=== PATIENT | female | born 1945 | race Caucasian/White ===

== ENCOUNTER 2017-09-29 16:02 | Inpatient (IN) ==
[2017-09-29] MEDS: *HR* OxyCODONE/APAP 10/325 TABLET PO PRN (19:49)
[2017-09-29] MEDS: Ondansetron 4 MG/2 ML VIAL IVP PRN (19:49)
[2017-09-29] MEDS: 0.9 % Sodium Chloride 1,000 ML IVC SCH (20:01)
[2017-09-29] MEDS: Aspirin 81 MG TAB.CHEW PO SCH (20:01)
[2017-09-30] MEDS: Piperacillin/Tazobactam 3.375 GM in 0.9 % Sodium Chloride Mini Bag 100 ML IVPB SCH ×3 (01:31→16:10)
[2017-09-30] MEDS: *HR* OxyCODONE/APAP 10/325 TABLET PO PRN ×4 (02:09→23:58)
[2017-09-30 06:52] LABS: Basophils % 0.5 %; Eosinophils # 0.3 K/mcL (0.0-0.6); Eosinophils % 3.8 %; Hematocrit 37.7 % (35.3-44.9); Hemoglobin 11.8 g/dL (11.5-15.4); Immature Granulocytes % 0.1 % (0-4); Lymphocytes # 1.8 K/mcL (0.6-4.6); Lymphocytes % 22.4 %; Mean Corpuscular HGB Conc 31.3 g/dL (31.6-35.5); Mean Corpuscular Hemoglobin 27.3 pg (28.0-33.3); Mean Corpuscular Volume 87.1 fL (83.0-100.0); Mean Platelet Volume 9.8 fL (9.4-12.4); Monocytes # 0.6 K/mcL (0.0-1.3); Monocytes % 7.8 %; Neutrophils # 5.1 K/mcL (1.6-8.9); Platelet Count 230 K/mcL (140-400); Red Blood Count 4.33 M/mcL (3.82-4.97); Red Cell Distribution Width 13.7 % (11.5-14.5); Segmented Neutrophils % 65.4 %
[2017-09-30 07:06] LABS: BUN/Creatinine Ratio 22 (6-26); Blood Urea Nitrogen 16 mg/dL (8-23); Calcium 8.7 mg/dL (8.6-10.3); Carbon Dioxide 30 mEq/L (23-29); Chloride 107 mEq/L (98-107); Glucose 90 mg/dL (70-105); Osmolality,Calculated 295 (280-300); Sodium 142 mEq/L (136-145); eGFR For African Americans > 60 (> 60); eGFR For Non-African Americans > 60 (> 60)
[2017-09-30] MEDS: Aspirin 81 MG TAB.CHEW PO SCH (08:47)
[2017-09-30] MEDS: 0.9 % Sodium Chloride 1,000 ML IVC SCH ×2 (08:48→21:12)
--- NOTE | 2017-09-30 08:48 | General Surg History&Physical ---
Date of Encounter: 09/30/17 Time of Encounter: 08:40 Assessment and Plan (1) Diverticulitis of colon with perforation Current Visit: No Status: Acute The assessment and plan as outlined above was discussed with the patient and/or family members who expressed understanding and agreement. All questions were answered. The patient has acute sigmoid diverticulitis. There is no associated fluid collection interpreted as an abscess. Since excellent quite small. She does have a significant length of the sigmoid colon involved with acute diverticulitis. Continue antibiotic therapy. Should respond to antibiotic therapy. Qualifiers: Diverticulitis bleeding: without bleeding Qualified Code(s): K57.20 - Diverticulitis of large intestine with perforation and abscess without bleeding History of Present Illness Chief complaint: Abdominal pain HPI: Ms. Pradhan is a 72 year old female presented to the [facility] emergency room with a 4-5 day history of abdominal pain. The pain is in the left lower quadrant and in the suprapubic area. She has not previously had abdominal pain of this type. She states that first day of abdominal pain she had disorientation really does not remember her first day of pain. She was in bed all day. She does have shakes chills. She states that she had a fever last night. She denies rectal bleeding. She denies changes in bowel movement. Evaluation in the emergency room demonstrated CAT scan evidence of acute diverticulitis. She now presents for evaluation and treatment of acute diverticulitis Past Med Surg Social Fam HX - Past Medical History Medical history: arthritis, COPD, other Psychiatric history: no psych history - Past Surgical History Surgical History: appendectomy, hysterectomy, other (Bladder sling surgery) - Social History Smoking Status: Former smoker Smokeless Tobacco Status: No Alcohol use: none Drug use: none Medications and Allergies Aspirin [Adult Aspirin Regimen] 81 mg PO DAILY 09/29/17 [History] Oxygen 1 each .ROUTE AD 09/29/17 [History] Sertraline [Zoloft] 25 mg PO DAILY 09/29/17 [History] 3 Allergy/AdvReac Type Severity Reaction Status Date / Time No Known Allergies Allergy Verified 09/29/17 12:07 Review of Systems All systems PM: The remainder of the systems were reviewed and are negative - Respiratory dyspnea on exertion, wheezing General Surgery Exam Initial Vital Signs Temp Pulse Resp BP Pulse Ox 98.8 F 81 18 139/92 97 09/29/17 17:30 09/29/17 17:30 09/29/17 17:30 09/29/17 17:30 09/29/17 17:30 - General physical appearance well developed, well nourished, severe pain, obese - Neck no masses, no bruits, trachea midline, no lymphadectomy, no venous distension - Respiratory normal expansion, normal respiratory effort, clear to percussion, clear to auscultation - Cardiovascular Cardiovascular exam: Present: RRR, no murmurs/rubs/gallops - Abdomen Abdomen general surgery: Present: bowel sounds present, soft, tender Abdominal Tenderness: Present: LLQ, suprapubic (Involuntary guarding) - Neurologic Present: CN 2-12 grossly intact, normal coordination, normal sensation - Psychiatric Psychiatric general surgery: Present: appropriate, oriented to person, oriented to place, oriented to time, speech is normal, memory intact Results - Labs 09/30/17 06:02 09/30/17 06:02 Abnormal lab results MCH 27.3 pg (28.0-33.3) L 09/30/17 06:02 MCHC 31.3 g/dL (31.6-35.5) L 09/30/17 06:02 Carbon Dioxide 30 mEq/L (23-29) H 09/30/17 06:02 Diabetes panel 09/30/17 Range/Units 06:02 Sodium 142 (136-145) mEq/L Potassium 4.0 (3.5-5.1) mEq/L Chloride 107 (98-107) mEq/L Carbon Dioxide 30 H (23-29) mEq/L BUN 16 (8-23) mg/dL Creatinine 0.72 (0.60-1.20) mg/dL Glucose 90 (70-105) mg/dL Calcium 8.7 (8.6-10.3) mg/dL Calcium panel 09/30/17 Range/Units 06:02 Calcium 8.7 (8.6-10.3) mg/dL Pituitary panel 09/30/17 Range/Units 06:02 Sodium 142 (136-145) mEq/L Potassium 4.0 (3.5-5.1) mEq/L Chloride 107 (98-107) mEq/L Carbon Dioxide 30 H (23-29) mEq/L BUN 16 (8-23) mg/dL Creatinine 0.72 (0.60-1.20) mg/dL Glucose 90 (70-105) mg/dL Calcium 8.7 (8.6-10.3) mg/dL Adrenal panel 09/30/17 Range/Units 06:02 Sodium 142 (136-145) mEq/L Potassium 4.0 (3.5-5.1) mEq/L Chloride 107 (98-107) mEq/L Carbon Dioxide 30 H (23-29) mEq/L BUN 16 (8-23) mg/dL Creatinine 0.72 (0.60-1.20) mg/dL Glucose 90 (70-105) mg/dL Calcium 8.7 (8.6-10.3) mg/dL All other labs normal. - Imaging CT scan - abdomen: image reviewed (I personally reviewed the CAT scan of the abdomen. She has findings consistent with diverticulitis. The reported abscess is quite small and should resolve with antibiotic therapy.) - VTE Reasons for not Prescribing Prophylaxis: Treatment not Indicated - Low risk for VTE
[2017-10-01] MEDS: Ondansetron 4 MG/2 ML VIAL IVP PRN ×2 (04:45→20:37)
[2017-10-01] MEDS: *HR* OxyCODONE/APAP 10/325 TABLET PO PRN ×3 (05:59→20:37)
[2017-10-01] MEDS: Piperacillin/Tazobactam 3.375 GM in 0.9 % Sodium Chloride Mini Bag 100 ML IVPB SCH ×2 (07:50)
[2017-10-01] MEDS: Aspirin 81 MG TAB.CHEW PO SCH (07:50)
--- NOTE | 2017-10-01 08:35 | General Surgery Progress Note ---
<Grant Nazario - Last Filed: 10/01/17 10:53> Date of Encounter: 10/01/17 Time of Encounter: 08:30 - Assessment and Plan (1) Diverticulitis of colon with perforation Current Visit: No Status: Acute Acute sigmoid diverticulitis without fluid collection suggestive of an abscess per CT review. Continuing Zosyn q8h. Will progress to clear liquids. No involuntary guarding today compared to yesterday. The assessment and plan as outlined above was discussed with the patient and/or family members who expressed understanding and agreement. All questions were answered. Qualifiers: Diverticulitis bleeding: without bleeding Qualified Code(s): K57.20 - Diverticulitis of large intestine with perforation and abscess without bleeding Subjective Patient reports: voiding w/o difficulty, afebrile Narrative: Ms. Pradhan states she has mild loose stools but is otherwise without complaint. Objective Vital Signs - Last 8 Hours Temp Pulse Resp BP Pulse Ox 10/01/17 07:54 95 10/01/17 06:47 98.3 F 96 20 96/60 95 10/01/17 02:55 98.4 F 70 18 100/62 97 Intake and Output 09/30/17 10/01/17 10/01/17 23:59 07:59 15:59 Intake Total 1100 / 1100 100 / 100 Output Total 300 / 300 0 / 0 Balance 800 / 800 100 / 100 Intake: IV Fluids 1100 / 1100 100 / 100 0.9 % Sodium Chloride 1,000 ML 1000 / 1000 @ 75 mls/hr IVC .[id number] [facility] Rx #:[id number] Zosyn 3.375 GM In 0.9 % Sodium 100 / 100 100 / 100 Chloride (Mini-Bag +) 100 ML @ 25 mls/hr IVPB Q8H [facility] Rx#: [id number] Oral 0 / 0 0 / 0 Output: Urine 300 / 300 0 / 0 Other: Meal npo Stool Size Small Stool Consistency loose soft Stool Color Brown # Voids 1 # Bowel Movements 1 # Bowel Movement Diapers 1 Weight 103 kg Blood Glucose* 78 77 Patient Weight 10/01/17 23:59 Weight 103 kg - General physical appearance well developed, well nourished, no distress - Eyes normal ocular movement - ENT normal pinna, normal nares, normal mucosa - Neck Neck exam: no masses - Respiratory normal expansion, normal respiratory effort, clear to auscultation - Cardiovascular Cardiovascular exam: Present: RRR, NR - Abdomen Abdomen: Present: soft, non tender. Absent: guarding - Neurologic normal sensation - Psychiatric oriented to time, oriented to person, speech is normal, memory intact - Labs 09/30/17 06:02 09/30/17 06:02 - VTE Reasons for not Prescribing Prophylaxis: Treatment not Indicated - Low risk for VTE Consult Discharge Plan - Plan Referrals: Mary Jo Dawkins, [employer] [Primary Care Provider] - <Collin Alexander - Last Filed: 10/01/17 14:01> Date of Encounter: 10/01/17 - Assessment and Plan (1) Diverticulitis of colon with perforation Current Visit: No Status: Acute Qualifiers: Diverticulitis bleeding: without bleeding Qualified Code(s): K57.20 - Diverticulitis of large intestine with perforation and abscess without bleeding Objective Vital Signs - Last 8 Hours Temp Pulse Resp BP Pulse Ox 10/01/17 11:15 98.0 F 68 16 103/64 98 10/01/17 07:54 95 10/01/17 06:47 98.3 F 96 20 96/60 95 Intake and Output 09/30/17 10/01/17 10/01/17 23:59 07:59 15:59 Intake Total 1100 / 1100 100 / 100 1100 / 1100 Output Total 300 / 300 0 / 0 Balance 800 / 800 100 / 100 1100 / 1100 Intake: IV Fluids 1100 / 1100 100 / 100 1100 / 1100 0.9 % Sodium Chloride 1,000 ML 1000 / 1000 1000 / 1000 @ 75 mls/hr IVC .[id number] [facility] Rx #:[id number] Zosyn 3.375 GM In 0.9 % Sodium 100 / 100 100 / 100 100 / 100 Chloride (Mini-Bag +) 100 ML @ 25 mls/hr IVPB Q8H [facility] Rx#: [id number] Oral 0 / 0 0 / 0 0 / 0 Output: Urine 300 / 300 0 / 0 Other: Meal npo NPO Stool Size Small Stool Consistency loose soft Stool Color Brown # Voids 1 1 # Bowel Movements 1 # Bowel Movement Diapers 1 Weight 103 kg Blood Glucose* 78 77 Patient Weight 10/01/17 23:59 Weight 103 kg - Labs 09/30/17 06:02 09/30/17 06:02 - Attending Attestation I examined this patient and my medical decision-making was reviewed with the Resident Physician. I agree with the documented findings, disposition and treatment plan as described except to the extent set forth below. The patient is seen and evaluated on morning rounds with the resident. Her abdominal examination is much improved and she no longer has involuntary guarding. I will start her on clear liquid diet. We will continue IV antibiotics at this point.
[2017-10-01] MEDS: 0.9 % Sodium Chloride 1,000 ML IVC SCH (10:36)
[2017-10-01] MEDS: MetroNIDAZOLE 500 MG/100 ML 500 MG/100 ML BAG IVPB SCH ×2 (12:22→20:37)
[2017-10-02] MEDS: *HR* OxyCODONE/APAP 10/325 TABLET PO PRN ×3 (04:20→21:20)
[2017-10-02] MEDS: Ondansetron 4 MG/2 ML VIAL IVP PRN (04:20)
[2017-10-02] MEDS: MetroNIDAZOLE 500 MG/100 ML 500 MG/100 ML BAG IVPB SCH ×3 (04:21→20:10)
[2017-10-02] MEDS: 0.9 % Sodium Chloride 1,000 ML IVC SCH (04:21)
[2017-10-02 04:54] LABS: Basophils % 0.3 %; Eosinophils # 0.2 K/mcL (0.0-0.6); Eosinophils % 2.3 %; Hematocrit 36.4 % (35.3-44.9); Hemoglobin 11.6 g/dL (11.5-15.4); Immature Granulocytes % 0.2 % (0-4); Lymphocytes # 1.6 K/mcL (0.6-4.6); Lymphocytes % 18.7 %; Mean Corpuscular HGB Conc 31.9 g/dL (31.6-35.5); Mean Corpuscular Hemoglobin 27.8 pg (28.0-33.3); Mean Corpuscular Volume 87.1 fL (83.0-100.0); Mean Platelet Volume 9.9 fL (9.4-12.4); Monocytes # 0.6 K/mcL (0.0-1.3); Monocytes % 6.8 %; Neutrophils # 6.2 K/mcL (1.6-8.9); Platelet Count 235 K/mcL (140-400); Red Blood Count 4.18 M/mcL (3.82-4.97); Red Cell Distribution Width 13.4 % (11.5-14.5); Segmented Neutrophils % 71.7 %
[2017-10-02 04:55] LABS: BUN/Creatinine Ratio 15 (6-26); Blood Urea Nitrogen 8 mg/dL (8-23); Calcium 8.5 mg/dL (8.6-10.3); Carbon Dioxide 28 mEq/L (23-29); Chloride 107 mEq/L (98-107); Glucose 106 mg/dL (70-105); Osmolality,Calculated 287 (280-300); Potassium 3.7 mEq/L (3.5-5.1); Sodium 139 mEq/L (136-145); eGFR For African Americans > 60 (> 60); eGFR For Non-African Americans > 60 (> 60)
[2017-10-02] MEDS: Aspirin 81 MG TAB.CHEW PO SCH (08:21)
--- NOTE | 2017-10-02 09:30 | General Surgery Progress Note ---
<Grant Nazario - Last Filed: 10/02/17 11:38> Date of Encounter: 10/02/17 Time of Encounter: 08:25 - Assessment and Plan (1) Diverticulitis of colon with perforation Current Visit: No Status: Acute Patient complains of persisting lower abdominal pain and nausea. Will order repeat CT abd/pelvis with iv and oral to assess for draining abscess. NPO and d/c fluids until after repeat CT. No involuntary guarding x2 days compared to 09/30. The assessment and plan as outlined above was discussed with the patient and/or family members who expressed understanding and agreement. All questions were answered. Qualifiers: Diverticulitis bleeding: without bleeding Qualified Code(s): K57.20 - Diverticulitis of large intestine with perforation and abscess without bleeding Subjective Narrative: Ms. Pradhan was seen and evaluated at bedside. She has been on a clear liquid diet, and has had a BM, she describes some nausea and persisting abdominal pain. No fevers. Objective Vital Signs - Last 8 Hours Temp Pulse Resp BP Pulse Ox 10/02/17 08:24 97 10/02/17 06:27 98.2 F 67 18 103/62 97 10/02/17 04:34 98.0 F 73 16 135/68 95 Intake and Output 10/01/17 10/02/17 10/02/17 23:59 07:59 15:59 Intake Total 940 / 940 1440 / 1440 0 / 0 Output Total 200 / 200 700 / 700 Balance 740 / 740 740 / 740 0 / 0 Intake: IV Fluids 100 / 100 1200 / 1200 0.9 % Sodium Chloride 1,000 ML 1000 / 1000 @ 75 mls/hr IVC .[id number] [facility] Rx #:[id number] Cipro Premix 400 MG/200 ML 400 200 / 200 mg In 200 ml @ 200 mls/hr IVPB Q12H [facility] Rx#:[id number] Flagyl Premix 500 MG/100 ML 500 100 / 100 mg In 100 ml @ 100 mls/hr IVPB Q8H [facility] Rx#:[id number] Oral 840 / 840 240 / 240 0 / 0 Output: Urine 200 / 200 700 / 700 Other: Meal Dinner NPO Percent of Meal Consumed 0% # Bowel Movement Diapers 1 Weight 103.51 kg Patient Weight 10/02/17 23:59 Weight 103.51 kg - General physical appearance well developed, well nourished, no distress - Eyes normal ocular movement - ENT normal mucosa - Neck Neck exam: no lymphadectomy - Respiratory clear to auscultation - Cardiovascular Cardiovascular exam: Present: RRR, regular rhythm. Absent: murmurs, JVD - Abdomen Abdomen: Present: soft, non tender - Psychiatric oriented to time, oriented to person, oriented to place, speech is normal, memory intact - Labs 10/02/17 04:18 10/02/17 04:18 Diabetes panel 10/02/17 Range/Units 04:18 Sodium 139 (136-145) mEq/L Potassium 3.7 (3.5-5.1) mEq/L Chloride 107 (98-107) mEq/L Carbon Dioxide 28 (23-29) mEq/L BUN 8 (8-23) mg/dL Creatinine 0.52 L (0.60-1.20) mg/dL Glucose 106 H (70-105) mg/dL Calcium 8.5 L (8.6-10.3) mg/dL Calcium panel 10/02/17 Range/Units 04:18 Calcium 8.5 L (8.6-10.3) mg/dL Pituitary panel 10/02/17 Range/Units 04:18 Sodium 139 (136-145) mEq/L Potassium 3.7 (3.5-5.1) mEq/L Chloride 107 (98-107) mEq/L Carbon Dioxide 28 (23-29) mEq/L BUN 8 (8-23) mg/dL Creatinine 0.52 L (0.60-1.20) mg/dL Glucose 106 H (70-105) mg/dL Calcium 8.5 L (8.6-10.3) mg/dL Adrenal panel 10/02/17 Range/Units 04:18 Sodium 139 (136-145) mEq/L Potassium 3.7 (3.5-5.1) mEq/L Chloride 107 (98-107) mEq/L Carbon Dioxide 28 (23-29) mEq/L BUN 8 (8-23) mg/dL Creatinine 0.52 L (0.60-1.20) mg/dL Glucose 106 H (70-105) mg/dL Calcium 8.5 L (8.6-10.3) mg/dL - VTE Reasons for not Prescribing Prophylaxis: Treatment not Indicated - Low risk for VTE Consult Discharge Plan - Plan Referrals: Mary Jo Dawkins, [employer]INTENANCE TECHNICIAN [Primary Care Provider] - <Collin Alexander - Last Filed: 10/02/17 17:09> Date of Encounter: 10/02/17 - Assessment and Plan (1) Diverticulitis of colon with perforation Current Visit: No Status: Acute Qualifiers: Diverticulitis bleeding: without bleeding Qualified Code(s): K57.20 - Diverticulitis of large intestine with perforation and abscess without bleeding Objective Vital Signs - Last 8 Hours Temp Pulse Resp BP Pulse Ox 10/02/17 16:01 98.1 F 66 18 116/78 96 10/02/17 15:23 98.1 F 66 16 116/78 96 10/02/17 10:53 97.6 F 65 14 133/63 98 Intake and Output 10/02/17 10/02/17 10/02/17 07:59 15:59 23:59 Intake Total 1540 / 1540 800 / 800 Output Total 700 / 700 300 / 300 Balance 840 / 840 500 / 500 Intake: IV Fluids 1300 / 1300 800 / 800 0.9 % Sodium Chloride 1,000 ML 1000 / 1000 500 / 500 @ 75 mls/hr IVC .[id number] [facility] Rx #:[id number] Cipro Premix 400 MG/200 ML 400 200 / 200 200 / 200 mg In 200 ml @ 200 mls/hr IVPB Q12H [facility] Rx#:[id number] Flagyl Premix 500 MG/100 ML 500 100 / 100 100 / 100 mg In 100 ml @ 100 mls/hr IVPB Q8H [facility] Rx#:[id number] Oral 240 / 240 0 / 0 Output: Urine 700 / 700 300 / 300 Other: Meal NPO Percent of Meal Consumed 0% Stool Size Large Stool Consistency loose Stool Color Brown Weight 103.51 kg Blood Glucose* 210 Patient Weight 10/02/17 23:59 Weight 103.51 kg - Labs 10/02/17 04:18 10/02/17 04:18 Diabetes panel 10/02/17 Range/Units 04:18 Sodium 139 (136-145) mEq/L Potassium 3.7 (3.5-5.1) mEq/L Chloride 107 (98-107) mEq/L Carbon Dioxide 28 (23-29) mEq/L BUN 8 (8-23) mg/dL Creatinine 0.52 L (0.60-1.20) mg/dL Glucose 106 H (70-105) mg/dL Calcium 8.5 L (8.6-10.3) mg/dL Calcium panel 10/02/17 Range/Units 04:18 Calcium 8.5 L (8.6-10.3) mg/dL Pituitary panel 10/02/17 Range/Units 04:18 Sodium 139 (136-145) mEq/L Potassium 3.7 (3.5-5.1) mEq/L Chloride 107 (98-107) mEq/L Carbon Dioxide 28 (23-29) mEq/L BUN 8 (8-23) mg/dL Creatinine 0.52 L (0.60-1.20) mg/dL Glucose 106 H (70-105) mg/dL Calcium 8.5 L (8.6-10.3) mg/dL Adrenal panel 10/02/17 Range/Units 04:18 Sodium 139 (136-145) mEq/L Potassium 3.7 (3.5-5.1) mEq/L Chloride 107 (98-107) mEq/L Carbon Dioxide 28 (23-29) mEq/L BUN 8 (8-23) mg/dL Creatinine 0.52 L (0.60-1.20) mg/dL Glucose 106 H (70-105) mg/dL Calcium 8.5 L (8.6-10.3) mg/dL - Attending Attestation I examined this patient and my medical decision-making was reviewed with the Resident Physician. I agree with the documented findings, disposition and treatment plan as described except to the extent set forth below. The patient is seen and evaluated on morning rounds with resident. She continues to complain of pain. Her white blood cell count is normal. She had evidence of very indiscrete abscess on CAT scan. I would like to rule out formation of a discrete abscess. We will order a CAT scan today. Continue IV antibiotic therapy proceed with CT drain of the abscess if present Collin Alexander MD FACS
[2017-10-03] MEDS: 0.9 % Sodium Chloride 1,000 ML IVC SCH ×3 (01:00→17:30)
[2017-10-03] MEDS: *HR* OxyCODONE/APAP 10/325 TABLET PO PRN ×3 (04:18→20:21)
[2017-10-03] MEDS: MetroNIDAZOLE 500 MG/100 ML 500 MG/100 ML BAG IVPB SCH ×3 (04:19→20:21)
[2017-10-03] MEDS: Ondansetron 4 MG/2 ML VIAL IVP PRN ×3 (04:19→20:19)
[2017-10-03 05:26] LABS: Basophils % 0.5 %; Eosinophils # 0.3 K/mcL (0.0-0.6); Eosinophils % 4.7 %; Hematocrit 36.4 % (35.3-44.9); Hemoglobin 11.6 g/dL (11.5-15.4); Immature Granulocytes % 0.3 % (0-4); Lymphocytes # 1.2 K/mcL (0.6-4.6); Lymphocytes % 18.4 %; Mean Corpuscular HGB Conc 31.9 g/dL (31.6-35.5); Mean Corpuscular Volume 87.7 fL (83.0-100.0); Mean Platelet Volume 10.1 fL (9.4-12.4); Monocytes # 0.5 K/mcL (0.0-1.3); Monocytes % 7.8 %; Neutrophils # 4.4 K/mcL (1.6-8.9); Platelet Count 215 K/mcL (140-400); Red Blood Count 4.15 M/mcL (3.82-4.97); Red Cell Distribution Width 13.6 % (11.5-14.5); Segmented Neutrophils % 68.3 %
[2017-10-03 05:44] LABS: BUN/Creatinine Ratio 10 (6-26); Blood Urea Nitrogen 5 mg/dL (8-23); Calcium 8.7 mg/dL (8.6-10.3); Carbon Dioxide 30 mEq/L (23-29); Chloride 106 mEq/L (98-107); Glucose 97 mg/dL (70-105); Osmolality,Calculated 291 (280-300); Potassium 3.4 mEq/L (3.5-5.1); Sodium 142 mEq/L (136-145); eGFR For African Americans > 60 (> 60); eGFR For Non-African Americans > 60 (> 60)
[2017-10-03] MEDS: Aspirin 81 MG TAB.CHEW PO SCH (08:35)
--- NOTE | 2017-10-03 09:09 | General Surgery Progress Note ---
Date of Encounter: 10/03/17 Time of Encounter: 09:45 - Assessment and Plan (1) Diverticulitis of colon with perforation Current Visit: No Status: Acute LLQ pain persists, does endorse non-bloody diarrhea. No leukocytosis or fever. Repeat CT abd/pelvis with iv and oral shows no drainable abscess, will return patient to clear liquids. Continuing Zosyn q8h. No involuntary guarding x3 days compared to 09/30. The assessment and plan as outlined above was discussed with the patient and/or family members who expressed understanding and agreement. All questions were answered. Qualifiers: Diverticulitis bleeding: without bleeding Qualified Code(s): K57.20 - Diverticulitis of large intestine with perforation and abscess without bleeding Subjective Patient reports: voiding w/o difficulty, diarrhea, afebrile Narrative: Patient seen and evaluated at bedside. Ms. Pradhan states her LLQ abdominal pain continues, is similar in nature to yesterday. She remains afebrile, denies chest pain, shortness of breath, nausea/vomiting. Her appetite comes and goes. Objective Vital Signs - Last 8 Hours Temp Pulse Resp BP Pulse Ox 10/03/17 06:35 97.8 F 62 16 119/77 97 10/03/17 04:15 98.1 F 68 18 111/73 98 Intake and Output 10/02/17 10/03/17 10/03/17 23:59 07:59 15:59 Intake Total 700 / 700 420 / 420 Output Total 1001 / 1001 400 / 400 Balance -301 / -301 20 / 20 Intake: IV Fluids 100 / 100 300 / 300 Cipro Premix 400 MG/200 ML 400 200 / 200 mg In 200 ml @ 200 mls/hr IVPB Q12H [facility] Rx#:[id number] Flagyl Premix 500 MG/100 ML 500 100 / 100 100 / 100 mg In 100 ml @ 100 mls/hr IVPB Q8H [facility] Rx#:[id number] Oral 600 / 600 120 / 120 Output: Urine 400 / 400 Urine/Stool Mix 1001 / 1001 Other: Meal clears Weight 96.9 kg Patient Weight 10/03/17 23:59 Weight 96.9 kg - General physical appearance well developed, well nourished, no distress - Eyes normal ocular movement - ENT normal mucosa - Neck Neck exam: no lymphadectomy - Abdomen Abdomen: Present: soft. Absent: distended, guarding, rigid Abdominal Tenderness: LLQ - Neurologic normal sensation - Psychiatric oriented to time, oriented to person, oriented to place, speech is normal, memory intact - Labs 10/03/17 04:27 10/03/17 04:27 Diabetes panel 10/03/17 Range/Units 04:27 Sodium 142 (136-145) mEq/L Potassium 3.4 L (3.5-5.1) mEq/L Chloride 106 (98-107) mEq/L Carbon Dioxide 30 H (23-29) mEq/L BUN 5 L (8-23) mg/dL Creatinine 0.51 L (0.60-1.20) mg/dL Glucose 97 (70-105) mg/dL Calcium 8.7 (8.6-10.3) mg/dL Calcium panel 10/03/17 Range/Units 04:27 Calcium 8.7 (8.6-10.3) mg/dL Pituitary panel 10/03/17 Range/Units 04:27 Sodium 142 (136-145) mEq/L Potassium 3.4 L (3.5-5.1) mEq/L Chloride 106 (98-107) mEq/L Carbon Dioxide 30 H (23-29) mEq/L BUN 5 L (8-23) mg/dL Creatinine 0.51 L (0.60-1.20) mg/dL Glucose 97 (70-105) mg/dL Calcium 8.7 (8.6-10.3) mg/dL Adrenal panel 10/03/17 Range/Units 04:27 Sodium 142 (136-145) mEq/L Potassium 3.4 L (3.5-5.1) mEq/L Chloride 106 (98-107) mEq/L Carbon Dioxide 30 H (23-29) mEq/L BUN 5 L (8-23) mg/dL Creatinine 0.51 L (0.60-1.20) mg/dL Glucose 97 (70-105) mg/dL Calcium 8.7 (8.6-10.3) mg/dL - VTE Reasons for not Prescribing Prophylaxis: Treatment not Indicated - Low risk for VTE Consult Discharge Plan - Plan Referrals: Mary Jo Dawkins, SAM [Primary Care Provider] -
[2017-10-03] MEDS ORDERED: Potassium Chloride 40 MEQ, Lidocaine 1% 2 ML in D5% in Water 500 ML IVPB ONE (13:07)
[2017-10-04] MEDS: MetroNIDAZOLE 500 MG/100 ML 500 MG/100 ML BAG IVPB SCH ×3 (03:18→20:24)
[2017-10-04 05:03] LABS: BUN/Creatinine Ratio 6 (6-26); Blood Urea Nitrogen 3 mg/dL (8-23); Calcium 8.2 mg/dL (8.6-10.3); Carbon Dioxide 27 mEq/L (23-29); Chloride 111 mEq/L (98-107); Glucose 91 mg/dL (70-105); Osmolality,Calculated 292 (280-300); Potassium 4.5 mEq/L (3.5-5.1); Sodium 143 mEq/L (136-145); eGFR For African Americans > 60 (> 60); eGFR For Non-African Americans > 60 (> 60)
[2017-10-04] MEDS: 0.9 % Sodium Chloride 1,000 ML IVC SCH (08:39)
[2017-10-04] MEDS: Aspirin 81 MG TAB.CHEW PO SCH (09:05)
[2017-10-04] MEDS: *HR* OxyCODONE/APAP 10/325 TABLET PO PRN (09:05)
--- NOTE | 2017-10-04 09:08 | General Surgery Progress Note ---
<Grant Nazario - Last Filed: 10/04/17 16:34> Date of Encounter: 10/04/17 Time of Encounter: 07:15 - Assessment and Plan (1) Diverticulitis of colon with perforation Status: Acute No guarding, patients VSS, no wt ct, pain 3/10 in LLQ after pain medication. Loose stools without nausea/vomiting on clear liquid diet. Continuing Cipro/Flagyl Plan to dc in next 24-48 hours pending clinical course and tolerating diet. Qualifiers: Diverticulitis bleeding: without bleeding Qualified Code(s): K57.20 - Diverticulitis of large intestine with perforation and abscess without bleeding Subjective Narrative: Patient states her LLQ has improved but still exists, is 3/10 after pain meds. She has no fever, nausea, or vomiting, her BMs are less loose than yesterday. Objective Vital Signs - Last 8 Hours Temp Pulse Resp BP Pulse Ox 10/04/17 08:15 96 10/04/17 07:00 98.1 F 69 14 114/75 96 10/04/17 04:47 97.8 F 66 17 125/67 97 Intake and Output 10/03/17 10/04/17 10/04/17 23:59 07:59 15:59 Intake Total 1142 / 1142 1000 / 1000 200 / 200 Output Total 1050 / 1050 1200 / 1200 Balance 92 / 92 1000 / 1000 -1000 / -1000 Intake: IV Fluids 622 / 622 1000 / 1000 0.9 % Sodium Chloride 1,000 ML 1000 / 1000 @ 75 mls/hr IVC .[id number] [facility] Rx #:[id number] Flagyl Premix 500 MG/100 ML 500 100 / 100 mg In 100 ml @ 100 mls/hr IVPB Q8H [facility] Rx#:[id number] KCl 40 MEQ Xylocaine 2 ML In 522 / 522 Dextrose 5% 500 ML @ 130.5 mls/ hr IVPB ONCE ONE Rx#:[id number] Oral 520 / 520 0 / 0 200 / 200 Output: Urine 700 / 700 Urine/Stool Mix 350 / 350 1200 / 1200 Other: Meal Clears # Voids 0 - General physical appearance well developed, well nourished, no distress - Eyes normal ocular movement - ENT normal mucosa - Respiratory clear to auscultation - Cardiovascular Cardiovascular exam: Present: RRR, JVD, no murmurs/rubs/gallops - Abdomen Abdomen: Present: bowel sounds present, soft. Absent: distended, rigid Abdominal Tenderness: LLQ - Neurologic normal sensation - Psychiatric oriented to time, oriented to person, oriented to place, speech is normal, memory intact - Labs 10/03/17 04:27 10/04/17 04:10 Diabetes panel 10/04/17 Range/Units 04:10 Sodium 143 (136-145) mEq/L Potassium 4.5 D (3.5-5.1) mEq/L Chloride 111 H (98-107) mEq/L Carbon Dioxide 27 (23-29) mEq/L BUN 3 L (8-23) mg/dL Creatinine 0.53 L (0.60-1.20) mg/dL Glucose 91 (70-105) mg/dL Calcium 8.2 L (8.6-10.3) mg/dL Calcium panel 10/04/17 Range/Units 04:10 Calcium 8.2 L (8.6-10.3) mg/dL Pituitary panel 10/04/17 Range/Units 04:10 Sodium 143 (136-145) mEq/L Potassium 4.5 D (3.5-5.1) mEq/L Chloride 111 H (98-107) mEq/L Carbon Dioxide 27 (23-29) mEq/L BUN 3 L (8-23) mg/dL Creatinine 0.53 L (0.60-1.20) mg/dL Glucose 91 (70-105) mg/dL Calcium 8.2 L (8.6-10.3) mg/dL Adrenal panel 10/04/17 Range/Units 04:10 Sodium 143 (136-145) mEq/L Potassium 4.5 D (3.5-5.1) mEq/L Chloride 111 H (98-107) mEq/L Carbon Dioxide 27 (23-29) mEq/L BUN 3 L (8-23) mg/dL Creatinine 0.53 L (0.60-1.20) mg/dL Glucose 91 (70-105) mg/dL Calcium 8.2 L (8.6-10.3) mg/dL - VTE Reasons for not Prescribing Prophylaxis: Treatment not Indicated - Low risk for VTE Consult Discharge Plan - Plan Instructions: Diverticulitis (DC), Diverticulitis Diet (DC) Additional Instructions: Take antibiotics as directed. Do not drink any alcohol while taking metronidazole. Refrain from drinking alcohol for 48 hours after taking metronidazole. Return for worsening abdominal discomfort, fevers greater than 100.5F, or worsening diarrhea. Referrals: Collin Alexander MD [Partnered Physician] - 10/26/17 8:25 am Mariza,Mary Jo Calderon CNP [Primary Care Provider] - Prescriptions: Ciprofloxacin [Cipro] 500 mg PO BID #20 tablet Ibuprofen 800 mg PO Q8H PRN #30 tablet PRN Reason: abdominal pain metroNIDAZOLE [Metronidazole] 500 mg PO TID #30 tablet <Collin Alexander - Last Filed: 10/05/17 16:57> Date of Encounter: 10/04/17 - Assessment and Plan (1) Diverticulitis of colon with perforation Status: Acute Qualifiers: Diverticulitis bleeding: with bleeding Qualified Code(s): K57.21 - Diverticulitis of large intestine with perforation and abscess with bleeding Objective Vital Signs - Last 8 Hours Temp Pulse Resp BP Pulse Ox 10/05/17 10:54 97.7 F 72 16 131/88 93 10/05/17 10:15 98 Intake and Output 10/05/17 10/05/17 10/05/17 07:59 15:59 23:59 Intake Total 400 / 400 120 / 120 Output Total 300 / 300 Balance 400 / 400 -180 / -180 Intake: IV Fluids 400 / 400 Cipro Premix 400 MG/200 ML 400 200 / 200 mg In 200 ml @ 200 mls/hr IVPB Q12H [facility] Rx#:[id number] Flagyl Premix 500 MG/100 ML 500 200 / 200 mg In 100 ml @ 100 mls/hr IVPB Q8H [facility] Rx#:[id number] Oral 0 / 0 120 / 120 Output: Urine 300 / 300 Other: # Voids 0 - Labs 10/05/17 04:38 10/05/17 04:38 Diabetes panel 10/05/17 Range/Units 04:38 Sodium 142 (136-145) mEq/L Potassium 3.2 L (3.5-5.1) mEq/L Chloride 105 (98-107) mEq/L Carbon Dioxide 32 H (23-29) mEq/L BUN 3 L (8-23) mg/dL Creatinine 0.55 L (0.60-1.20) mg/dL Glucose 115 H (70-105) mg/dL Calcium 8.7 (8.6-10.3) mg/dL Calcium panel 10/05/17 Range/Units 04:38 Calcium 8.7 (8.6-10.3) mg/dL Pituitary panel 10/05/17 Range/Units 04:38 Sodium 142 (136-145) mEq/L Potassium 3.2 L (3.5-5.1) mEq/L Chloride 105 (98-107) mEq/L Carbon Dioxide 32 H (23-29) mEq/L BUN 3 L (8-23) mg/dL Creatinine 0.55 L (0.60-1.20) mg/dL Glucose 115 H (70-105) mg/dL Calcium 8.7 (8.6-10.3) mg/dL Adrenal panel 10/05/17 Range/Units 04:38 Sodium 142 (136-145) mEq/L Potassium 3.2 L (3.5-5.1) mEq/L Chloride 105 (98-107) mEq/L Carbon Dioxide 32 H (23-29) mEq/L BUN 3 L (8-23) mg/dL Creatinine 0.55 L (0.60-1.20) mg/dL Glucose 115 H (70-105) mg/dL Calcium 8.7 (8.6-10.3) mg/dL - Attending Attestation I examined this patient and my medical decision-making was reviewed with the Resident Physician. I agree with the documented findings, disposition and treatment plan as described except to the extent set forth below. The patient is seen and evaluated with resident on morning rounds. She continues to improve. We will plan transition to oral antibiotics and discharged tomorrow.
[2017-10-04] MEDS: Ondansetron 4 MG/2 ML VIAL IVP PRN (09:09)
[2017-10-05] MEDS: Ondansetron 4 MG/2 ML VIAL IVP PRN (02:44)
[2017-10-05] MEDS: MetroNIDAZOLE 500 MG/100 ML 500 MG/100 ML BAG IVPB SCH ×2 (04:43→11:44)
[2017-10-05 04:57] LABS: Basophils % 0.3 %; Eosinophils # 0.4 K/mcL (0.0-0.6); Eosinophils % 5.8 %; Hematocrit 34.7 % (35.3-44.9); Hemoglobin 11.2 g/dL (11.5-15.4); Immature Granulocytes % 0.5 % (0-4); Lymphocytes % 15.3 %; Mean Corpuscular HGB Conc 32.3 g/dL (31.6-35.5); Mean Corpuscular Hemoglobin 27.9 pg (28.0-33.3); Mean Corpuscular Volume 86.5 fL (83.0-100.0); Mean Platelet Volume 9.9 fL (9.4-12.4); Monocytes # 0.5 K/mcL (0.0-1.3); Monocytes % 7.7 %; Neutrophils # 4.4 K/mcL (1.6-8.9); Platelet Count 225 K/mcL (140-400); Red Blood Count 4.01 M/mcL (3.82-4.97); Red Cell Distribution Width 13.5 % (11.5-14.5); Segmented Neutrophils % 70.4 %
[2017-10-05 05:16] LABS: BUN/Creatinine Ratio 5 (6-26); Blood Urea Nitrogen 3 mg/dL (8-23); Calcium 8.7 mg/dL (8.6-10.3); Carbon Dioxide 32 mEq/L (23-29); Chloride 105 mEq/L (98-107); Glucose 115 mg/dL (70-105); Osmolality,Calculated 291 (280-300); Potassium 3.2 mEq/L (3.5-5.1); Sodium 142 mEq/L (136-145); eGFR For African Americans > 60 (> 60); eGFR For Non-African Americans > 60 (> 60)
[2017-10-05] MEDS: Aspirin 81 MG TAB.CHEW PO SCH (10:14)
[2017-10-05 10:59] VITALS: BP 131/88
--- NOTE | 2017-10-05 12:26 | Discharge Summary ---
<Marcie Chandler - Last Filed: 10/05/17 13:26> Date of Encounter: 10/05/17 Time of Encounter: 13:20 - Discharge Diagnosis (1) Diverticulitis of colon with perforation Priority: Primary Status: Acute Qualifiers: Diverticulitis bleeding: with bleeding Qualified Code(s): K57.21 - Diverticulitis of large intestine with perforation and abscess with bleeding (2) On home O2 Priority: Secondary Status: Chronic (3) COPD (chronic obstructive pulmonary disease) Priority: Secondary Status: Chronic Qualifiers: COPD type: unspecified COPD Qualified Code(s): J44.9 - Chronic obstructive pulmonary disease, unspecified General Surgery Exam Initial Vital Signs Temp Pulse Resp BP Pulse Ox 98.8 F 81 18 139/92 97 09/29/17 17:30 09/29/17 17:30 09/29/17 17:30 09/29/17 17:30 09/29/17 17:30 VITAL SIGNS: Reviewed. See [facility] GENERAL: In no apparent distress. HEENT: Normocephalic, atraumatic, pupils are equal and reactive, extraocular motions intact, oropharynx is pink and moist, there is no neck adenopathy or JVD noted. CHEST/RESPIRATORY: The thorax is free from signs of trauma. Lung sounds: clear to auscultation, normal respiratory effort; O2 per nasal cannula noted. Patient states she has chronic home 02 use only if she is up and about. CARDIAC: Regular rate and rhythm. Normal S1 and S2, without murmurs, gallops, or rubs. VASCULAR: No Edema. 2+ peripheral pulses. ABDOMEN: soft, nontender, active bowel sounds MUSCULOSKELETAL: Good range of motion of all major joints. Extremities without clubbing, cyanosis or edema. NEUROLOGIC EXAM: Alert and oriented x 3. Speech normal. Follows commands. PSYCHIATRIC: Mood normal. SKIN: No rash or lesions. - Hospital Course Hospital course: Ms. Pradhan is a 72 year old female who presented on 09/29/2017 with a 4 to 5 day history of abdominal discomfort. She does the pain was in the left lower quadrant and the suprapubic area. She was evaluated at [place] emergency department and had a CT scan which showed evidence of acute diverticulitis. Her last colonoscopy was reported as 12 years ago. She denies any other history of acute diverticulitis. Her white blood cell count has remained normal throughout her entire hospital stay. She is tolerating a full liquid diet without nausea or vomiting or worsening abdominal discomfort. She is ambulating and voiding without difficulty. Her vital signs are stable and she is afebrile. She was treated with IV Cipro and Flagyl during her hospital course. We will begin discharge planning to home with a follow-up in approximately 4 to [address] Alexander to discuss scheduling of an outpatient colonoscopy. She will be discharged on PO antibiotics. - Time Spent with Patient Total time spent providing and/or coordinating discharge services: Less than 30 minutes - Discharge Medications Prescriptions: Ciprofloxacin [Cipro] 500 mg PO BID #20 tablet Ibuprofen 800 mg PO Q8H PRN #30 tablet PRN Reason: abdominal pain metroNIDAZOLE [Metronidazole] 500 mg PO TID #30 tablet Home Medications: Aspirin [Adult Aspirin Regimen] 81 mg PO DAILY 09/29/17 [History] Oxygen 2 - 3 l NS AD 09/29/17 [History] Sertraline [Zoloft] 25 mg PO DAILY 09/29/17 [History] Ciprofloxacin [Cipro] 500 mg PO BID #20 tablet 10/05/17 [Rx] Ibuprofen 800 mg PO Q8H PRN #30 tablet 10/05/17 [Rx] metroNIDAZOLE [Metronidazole] 500 mg PO TID #30 tablet 10/05/17 [Rx] Allergies/Adverse Reactions: 3 Allergy/AdvReac Type Severity Reaction Status Date / Time No Known Allergies Allergy Verified 09/29/17 12:07 Date of admission: 09/29/17 18:33 Primary care physician: Mary Jo Dawkins CNP Discharging clinician: Collin Chandler) Anticipated date of discharge: 10/05/17 Labs on day of discharge: Labs from last 24 hours 10/05/17 10/05/17 04:38 04:38 WBC 6.2 RBC 4.01 Hgb 11.2 L Hct 34.7 L MCV 86.5 MCH 27.9 L MCHC 32.3 RDW 13.5 Plt Count 225 MPV 9.9 Immature Gran % 0.5 Seg Neutrophils % 70.4 Lymphocytes % 15.3 Monocytes % 7.7 Eosinophils % 5.8 Basophils % 0.3 Neutrophils # 4.4 Lymphocytes # 1.0 Monocytes # 0.5 Eosinophils # 0.4 Basophils # 0.0 Sodium 142 Potassium 3.2 L Chloride 105 Carbon Dioxide 32 H BUN 3 L Creatinine 0.55 L Est GFR ( Amer) > 60 Est GFR (Non-Af Amer) > 60 BUN/Creatinine Ratio 5 L Glucose 115 H Calculated Osmolality 291 Calcium 8.7 - Impressions ITS Impressions Abdomen/Pelvis CT 10/02/17 11:30 IMPRESSION: Stable appearance of inflammatory changes and wall thickening involving the sigmoid colon most likely representing acute diverticulitis. Recommend follow-up after resolution of acute symptoms to exclude an underlying lesion. No evidence of free air. No evidence of drainable abscess in the pelvis. Small focal rim enhancing fluid collection measuring approximately 12 x 20 x 15 mm in the superior wall of the sigmoid colon may represent the acute inflamed diverticulum versus a small intramural collection secondary to the acute diverticulitis. D/ / 10/02/2017 12:15:46 John Wade MD / hemanth Interpreting Provider: John Wade MD - Patient Status Disposition: Home, Self-Care Condition: Good Functional capacity at discharge: independent ambulation Overall status at discharge: patient is progressing back to baseline - Discharge Instructions Instructions: Diverticulitis (DC), Diverticulitis Diet (DC) Follow Up With: Collin Alexander MD [Partnered Physician] - 10/26/17 8:25 am Lower,Mary Jo Calderon CNP [Primary Care Provider] - Additional Instructions: Take antibiotics as directed. Do not drink any alcohol while taking metronidazole. Refrain from drinking alcohol for 48 hours after taking metronidazole. Return for worsening abdominal discomfort, fevers greater than 100.5F, or worsening diarrhea. - Diet and Activity Activity: increase activity as tolerated Diet: other (low fiber diet) <Collin Alexander - Last Filed: 10/05/17 16:59> Date of Encounter: 10/05/17 - Discharge Diagnosis (1) Diverticulitis of colon with perforation Status: Acute Qualifiers: Diverticulitis bleeding: with bleeding Qualified Code(s): K57.21 - Diverticulitis of large intestine with perforation and abscess with bleeding General Surgery Exam Initial Vital Signs Temp Pulse Resp BP Pulse Ox 98.8 F 81 18 139/92 97 09/29/17 17:30 09/29/17 17:30 09/29/17 17:30 09/29/17 17:30 09/29/17 17:30 - Hospital Course Hospital course: Ms. Pradhan is a 72 year old female - Time Spent with Patient Total time spent providing and/or coordinating discharge services: Date of admission: 09/29/17 18:33 Primary care physician: Mary Jo Dawkins, SAM Labs on day of discharge: Labs from last 24 hours 10/05/17 10/05/17 04:38 04:38 WBC 6.2 RBC 4.01 Hgb 11.2 L Hct 34.7 L MCV 86.5 MCH 27.9 L MCHC 32.3 RDW 13.5 Plt Count 225 MPV 9.9 Immature Gran % 0.5 Seg Neutrophils % 70.4 Lymphocytes % 15.3 Monocytes % 7.7 Eosinophils % 5.8 Basophils % 0.3 Neutrophils # 4.4 Lymphocytes # 1.0 Monocytes # 0.5 Eosinophils # 0.4 Basophils # 0.0 Sodium 142 Potassium 3.2 L Chloride 105 Carbon Dioxide 32 H BUN 3 L Creatinine 0.55 L Est GFR ( Amer) > 60 Est GFR (Non-Af Amer) > 60 BUN/Creatinine Ratio 5 L Glucose 115 H Calculated Osmolality 291 Calcium 8.7 - Impressions ITS Impressions Abdomen/Pelvis CT 10/02/17 11:30 IMPRESSION: Stable appearance of inflammatory changes and wall thickening involving the sigmoid colon most likely representing acute diverticulitis. Recommend follow-up after resolution of acute symptoms to exclude an underlying lesion. No evidence of free air. No evidence of drainable abscess in the pelvis. Small focal rim enhancing fluid collection measuring approximately 12 x 20 x 15 mm in the superior wall of the sigmoid colon may represent the acute inflamed diverticulum versus a small intramural collection secondary to the acute diverticulitis. D/ / 10/02/2017 12:15:46 John Wade MD / hemanth Interpreting Provider: John Wade MD - Attending Attestation I examined this patient and my medical decision-making was reviewed with the Resident Physician. I agree with the documented findings, disposition and treatment plan as described except to the extent set forth below. The patient is seen and evaluated on morning rounds with resident. She is ready for discharge. I will see her back in 6 weeks to arrange colonoscopy evaluation. Collin Alexander MD FACS
[2017-10-05] MEDS ORDERED: metroNIDAZOLE 500 MG TABLET PO ONE (12:39)
== END 2017-10-05 14:30 | disposition home or self-care (01) | DRG 378 ==
LOC: 3ANU
PROVIDERS: ADMIT Surgery; ATTEND Surgery

== ENCOUNTER 2017-10-23 15:19 | Inpatient (IN) ==
[2017-10-23] MEDS ORDERED: 0.9 % Sodium Chloride 1,000 ML IVC ONE (17:53)
[2017-10-23] MEDS ORDERED: *HR* OxyCODONE Immed Rel 5 MG TABLET PO PRN (17:58)
[2017-10-23 19:36] LABS: Basophils # 0.1 K/mcL (0.0-0.2); Basophils % 0.7 %; Eosinophils # 0.3 K/mcL (0.0-0.6); Hematocrit 35.1 % (35.3-44.9); Hemoglobin 11.4 g/dL (11.5-15.4); Immature Granulocytes % 0.1 % (0-4); Lymphocytes # 2.5 K/mcL (0.6-4.6); Lymphocytes % 32.4 %; Mean Corpuscular HGB Conc 32.5 g/dL (31.6-35.5); Mean Corpuscular Hemoglobin 27.9 pg (28.0-33.3); Mean Corpuscular Volume 85.8 fL (83.0-100.0); Mean Platelet Volume 10.1 fL (9.4-12.4); Monocytes # 0.6 K/mcL (0.0-1.3); Monocytes % 7.8 %; Neutrophils # 4.2 K/mcL (1.6-8.9); Platelet Count 218 K/mcL (140-400); Red Blood Count 4.09 M/mcL (3.82-4.97); Red Cell Distribution Width 14.4 % (11.5-14.5)
[2017-10-23] MEDS: 0.9 % Sodium Chloride 1,000 ML IVC SCH (19:41)
[2017-10-23 19:58] LABS: Alanine Aminotransferase 11 Units/L (7-52); Albumin 3.3 g/dL (3.5-5.7); Albumin/Globulin Ratio 1.3 (1.1-2.2); Alkaline Phosphatase 60 Units/L (34-104); Aspartate Amino Transferase 14 Units/L (13-39); BUN/Creatinine Ratio 17 (6-26); Bilirubin,Total 0.5 mg/dL (0.3-1.0); Blood Urea Nitrogen 11 mg/dL (8-23); Calcium 8.4 mg/dL (8.6-10.3); Carbon Dioxide 24 mEq/L (23-29); Chloride 111 mEq/L (98-107); Globulin 2.6 g/dL (2.4-3.5); Glucose 83 mg/dL (70-105); Osmolality,Calculated 295 (280-300); Potassium 4.2 mEq/L (3.5-5.1); Sodium 143 mEq/L (136-145); Total Protein 5.9 g/dL (6.4-8.9); eGFR For African Americans > 60 (> 60); eGFR For Non-African Americans > 60 (> 60)
[2017-10-23] MEDS: *HR* Morphine 30 MG/ 30 ML PCA IVC PRN (21:38)
[2017-10-23] MEDS: Piperacillin/Tazobactam 3.375 GM in 0.9 % Sodium Chloride Mini Bag 100 ML IVPB SCH (23:29)
[2017-10-24] MEDS: 0.9 % Sodium Chloride 1,000 ML IVC SCH ×3 (04:01→20:24)
[2017-10-24] MEDS: *HR* Enoxaparin 40 MG/0.4 ML SYRINGE SQ SCH (05:09)
[2017-10-24] MEDS: Piperacillin/Tazobactam 3.375 GM in 0.9 % Sodium Chloride Mini Bag 100 ML IVPB SCH ×2 (07:56→16:33)
[2017-10-24] MEDS: Pantoprazole 40 MG VIAL IVP SCH (08:00)
--- NOTE | 2017-10-24 09:54 | General Surg History&Physical ---
<Grant Nazario - Last Filed: 10/24/17 10:12> Date of Encounter: 10/24/17 Time of Encounter: 07:45 Assessment and Plan (1) Acute diverticulitis Current Visit: Yes Status: Acute Recent admit 09/25-10/05, completed outpatient cipro/flagyl 10 days Patient states her LLQ pain never fully went away, came in 10/[address] shows persisting diverticulitis without perforation/free air/free fluid/ abscess Exam shows no involuntary guarding or rigidity; is tender in LLQ to touch Plan: IV abx with Zosyn q8h Bowel rest--NPO today except for meds IV fluids and supportive care Monitoring for symptom resolution over next 3-4 days; if refractory to IV abx, suggests medical therapy failure, discussed with patient possibility of need for resection. AM labs The assessment and plan as outlined above was discussed with the patient and/or family members who expressed understanding and agreement. All questions were answered. History of Present Illness Chief complaint: LLQ abd pain HPI: Interval history: Ms. Pradhan is a 72 year old female who presents for worsening LLQ pain. She was recently admitted on 09/25 for acute diverticulitis, discharged on 10/05 with 10 days of cipro/flagyl. 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 She took them to completion finishing them middle of last week. Her pain in the LLQ never reached 0/10, she states she came in for worsening pain 10/23. She denies blood in her stool, changes in stool caliber, nausea or vomiting, no bloating or changes of symptoms associated with eating, no dysuria. Her last colonoscopy was 12 years ago which was benign. She was scheduled for outpatient follow-up 10/26 for planning for colonoscopy after [address] abd/pelvis was performed in the ED showing prox/mid sigmoid diverticulitis without perforation or colonic abscess. Stable 1.1cm splenic artery aneurysm seen on prior studies. Today she states her pain has not improved. She has not vomited, no fevers overnight. She is NPO. She is not constipated, has soft stools. Past Med Surg Social Fam HX - Past Medical History Medical history: arthritis, COPD, other Psychiatric history: depression - Past Surgical History Surgical History: appendectomy, hysterectomy, other - Social History Smoking Status: Former smoker Smokeless Tobacco Status: No Alcohol use: none Drug use: none - Family History Father Hx Family Cardiac Disorders: (Heart failure) Hx Family Respiratory Disorders: Yes (COPD) Hx Family Cancer: No Hx Family GI Disorders: Yes (GI ulcers) Hx Family Genitourinary Disorders: No Hx Family Endocrine Disorder: No Hx Family Musculoskeletal Disorders: No Hx Family Neuromuscular Disorders: No Hx Family Neurologic Disorders: No Hx Family HEENT Disorders: No Hx Family Autoimmune Disorders: No Hx Family Reproductive Disorders: No Hx Family Psychosocial Disorders: No Hx Family Medical Disorders: No Medications and Allergies Aspirin [Adult Aspirin Regimen] 81 mg PO DAILY 09/29/17 [History] Sertraline [Zoloft] 100 mg PO DAILY 09/29/17 [History] 3 Allergy/AdvReac Type Severity Reaction Status Date / Time No Known Allergies Allergy Verified 10/24/17 09:55 Review of Systems All systems PM: reviewed and no additional remarkable complaints except as stated All systems PM: The remainder of the systems were reviewed and are negative - Constitutional anorexia, no chills, no fever(s) - EENT Nose, mouth and throat: no dysphagia - Cardiovascular no chest pain, no chest pain at rest, no chest pain with activity - Respiratory no cough, no dyspnea, no hemoptysis - Gastrointestinal other (soft stools), no change in stool character, no hematemesis, no hematochezia, no melena, no vomiting - Integumentary no lesions, no rash - Neurological no abnormal movements, no abnormal speech, no behavioral changes - Psychiatric no behavioral changes - Hematologic/Lymphatic no easy bruising General Surgery Exam Initial Vital Signs Temp Pulse Resp BP Pulse Ox 97.9 F 75 16 115/75 95 10/23/17 17:41 10/23/17 17:41 10/23/17 17:41 10/23/17 17:41 10/23/17 17:41 - General physical appearance well developed, well nourished, no distress - Eyes normal ocular movement - ENT normal mucosa, atraumatic - Neck no lymphadectomy - Respiratory normal expansion, normal respiratory effort, clear to auscultation - Cardiovascular Cardiovascular exam: Present: RRR, no murmurs/rubs/gallops. Absent: JVD - Abdomen Abdomen general surgery: Present: bowel sounds present, soft. Absent: guarding , rebound, rigid Abdominal Tenderness: Present: LLQ - Neurologic Present: normal coordination, normal sensation - Musculoskeletal Present: normal posture - Psychiatric Psychiatric general surgery: Present: A&Ox3, speech is normal, memory intact Results - Labs 10/23/17 19:16 10/23/17 19:16 Abnormal lab results Hgb 11.4 g/dL (11.5-15.4) L 10/23/17 19:16 Hct 35.1 % (35.3-44.9) L 10/23/17 19:16 MCH 27.9 pg (28.0-33.3) L 10/23/17 19:16 Chloride 111 mEq/L (98-107) H 10/23/17 19:16 Calcium 8.4 mg/dL (8.6-10.3) L 10/23/17 19:16 Serum Total Protein 5.9 g/dL (6.4-8.9) L 10/23/17 19:16 Albumin 3.3 g/dL (3.5-5.7) L 10/23/17 19:16 Diabetes panel 10/23/17 Range/Units 19:16 Sodium 143 (136-145) mEq/L Potassium 4.2 (3.5-5.1) mEq/L Chloride 111 H (98-107) mEq/L Carbon Dioxide 24 (23-29) mEq/L BUN 11 (8-23) mg/dL Creatinine 0.65 (0.60-1.20) mg/dL Glucose 83 (70-105) mg/dL Calcium 8.4 L (8.6-10.3) mg/dL AST 14 (13-39) Units/L ALT 11 (7-52) Units/L Alkaline Phosphatase 60 (34-104) Units/L Albumin 3.3 L (3.5-5.7) g/dL Calcium panel 10/23/17 Range/Units 19:16 Calcium 8.4 L (8.6-10.3) mg/dL Albumin 3.3 L (3.5-5.7) g/dL Pituitary panel 10/23/17 Range/Units 19:16 Sodium 143 (136-145) mEq/L Potassium 4.2 (3.5-5.1) mEq/L Chloride 111 H (98-107) mEq/L Carbon Dioxide 24 (23-29) mEq/L BUN 11 (8-23) mg/dL Creatinine 0.65 (0.60-1.20) mg/dL Glucose 83 (70-105) mg/dL Calcium 8.4 L (8.6-10.3) mg/dL Adrenal panel 10/23/17 Range/Units 19:16 Sodium 143 (136-145) mEq/L Potassium 4.2 (3.5-5.1) mEq/L Chloride 111 H (98-107) mEq/L Carbon Dioxide 24 (23-29) mEq/L BUN 11 (8-23) mg/dL Creatinine 0.65 (0.60-1.20) mg/dL Glucose 83 (70-105) mg/dL Calcium 8.4 L (8.6-10.3) mg/dL Total Bilirubin 0.5 (0.3-1.0) mg/dL AST 14 (13-39) Units/L ALT 11 (7-52) Units/L Alkaline Phosphatase 60 (34-104) Units/L Albumin 3.3 L (3.5-5.7) g/dL All other labs normal. <Collin Alexander - Last Filed: 10/25/17 10:54> Date of Encounter: 10/24/17 History of Present Illness HPI: Ms. Pradhan is a 72 year old female Review of Systems All systems PM: The remainder of the systems were reviewed and are negative General Surgery Exam Initial Vital Signs Temp Pulse Resp BP Pulse Ox 97.9 F 75 16 115/75 95 10/23/17 17:41 10/23/17 17:41 10/23/17 17:41 10/23/17 17:41 10/23/17 17:41 Results - Labs 10/25/17 05:51 10/25/17 05:51 Abnormal lab results Hgb 10.9 g/dL (11.5-15.4) L 10/25/17 05:51 Hct 34.8 % (35.3-44.9) L 10/25/17 05:51 MCH 27.4 pg (28.0-33.3) L 10/25/17 05:51 MCHC 31.3 g/dL (31.6-35.5) L 10/25/17 05:51 Carbon Dioxide 22 mEq/L (23-29) L 10/25/17 05:51 Creatinine 0.52 mg/dL (0.60-1.20) L 10/25/17 05:51 Calcium 8.3 mg/dL (8.6-10.3) L 10/25/17 05:51 Serum Total Protein 5.9 g/dL (6.4-8.9) L 10/23/17 19:16 Albumin 3.3 g/dL (3.5-5.7) L 10/23/17 19:16 Diabetes panel 10/25/17 Range/Units 05:51 Sodium 137 (136-145) mEq/L Potassium 4.0 (3.5-5.1) mEq/L Chloride 107 (98-107) mEq/L Carbon Dioxide 22 L (23-29) mEq/L BUN 9 (8-23) mg/dL Creatinine 0.52 L (0.60-1.20) mg/dL Glucose 77 (70-105) mg/dL Calcium 8.3 L (8.6-10.3) mg/dL Calcium panel 10/25/17 Range/Units 05:51 Calcium 8.3 L (8.6-10.3) mg/dL Pituitary panel 10/25/17 Range/Units 05:51 Sodium 137 (136-145) mEq/L Potassium 4.0 (3.5-5.1) mEq/L Chloride 107 (98-107) mEq/L Carbon Dioxide 22 L (23-29) mEq/L BUN 9 (8-23) mg/dL Creatinine 0.52 L (0.60-1.20) mg/dL Glucose 77 (70-105) mg/dL Calcium 8.3 L (8.6-10.3) mg/dL Adrenal panel 10/25/17 Range/Units 05:51 Sodium 137 (136-145) mEq/L Potassium 4.0 (3.5-5.1) mEq/L Chloride 107 (98-107) mEq/L Carbon Dioxide 22 L (23-29) mEq/L BUN 9 (8-23) mg/dL Creatinine 0.52 L (0.60-1.20) mg/dL Glucose 77 (70-105) mg/dL Calcium 8.3 L (8.6-10.3) mg/dL All other labs normal. - Attending Attestation I examined this patient and my medical decision-making was reviewed with the Resident Physician. I agree with the documented findings, disposition and treatment plan as described except to the extent set forth below. The patient is seen and evaluated on morning rounds with resident. She continues to have left lower quadrant pain. She has short interval recurrence of her diverticulitis. I have recommended treating her with antibiotics until asymptomatic and proceed with bowel preparation and resection. She understands there is a chance of Sterling's procedure. Continue antibiotics today. Collin Alexander MD FACS
[2017-10-24] MEDS: *HR* Morphine 30 MG/ 30 ML PCA IVC PRN (18:40)
[2017-10-25] MEDS: Ondansetron 4 MG/2 ML VIAL IVP PRN (04:06)
[2017-10-25] MEDS: Piperacillin/Tazobactam 3.375 GM in 0.9 % Sodium Chloride Mini Bag 100 ML IVPB SCH ×3 (04:09→16:59)
[2017-10-25] MEDS: 0.9 % Sodium Chloride 1,000 ML IVC SCH ×2 (04:35→22:15)
[2017-10-25] MEDS: *HR* Enoxaparin 40 MG/0.4 ML SYRINGE SQ SCH (05:57)
[2017-10-25 06:11] LABS: Basophils % 0.4 %; Eosinophils # 0.2 K/mcL (0.0-0.6); Eosinophils % 3.1 %; Hematocrit 34.8 % (35.3-44.9); Hemoglobin 10.9 g/dL (11.5-15.4); Immature Granulocytes % 0.3 % (0-4); Lymphocytes # 1.3 K/mcL (0.6-4.6); Lymphocytes % 17.3 %; Mean Corpuscular HGB Conc 31.3 g/dL (31.6-35.5); Mean Corpuscular Hemoglobin 27.4 pg (28.0-33.3); Mean Corpuscular Volume 87.4 fL (83.0-100.0); Monocytes # 0.5 K/mcL (0.0-1.3); Neutrophils # 5.6 K/mcL (1.6-8.9); Platelet Count 201 K/mcL (140-400); Red Blood Count 3.98 M/mcL (3.82-4.97); Segmented Neutrophils % 71.9 %
[2017-10-25 06:34] LABS: BUN/Creatinine Ratio 17 (6-26); Blood Urea Nitrogen 9 mg/dL (8-23); Calcium 8.3 mg/dL (8.6-10.3); Carbon Dioxide 22 mEq/L (23-29); Chloride 107 mEq/L (98-107); Glucose 77 mg/dL (70-105); Osmolality,Calculated 281 (280-300); Sodium 137 mEq/L (136-145); eGFR For African Americans > 60 (> 60); eGFR For Non-African Americans > 60 (> 60)
[2017-10-25] MEDS: Pantoprazole 40 MG VIAL IVP SCH (08:26)
--- NOTE | 2017-10-25 09:22 | General Surgery Progress Note ---
<Grant Nazario - Last Filed: 10/25/17 09:26> Date of Encounter: 10/25/17 Time of Encounter: 07:00 - Assessment and Plan (1) Acute diverticulitis Current Visit: Yes Status: Acute No fevers overnight, no wt ct, creatinine WNL Exam shows mild guarding on deep palpation of LLQ. CT in ED shows persisting diverticulitis of proximal/mid sigmoid without abscess /perforation. Plan: Will continue Zosyn through weekend (today 10/25 to Saturday 10/28), if patient does not demonstrates improvement of symptoms likely refractory to medical therapy. Patient aware of potential for resection of affected colon ( proximal/mid sigmoid). Bowel prep planned for Sunday in this scenario. Continue supportive care and pain management. Clear liquid diet. Subjective Narrative: Ms. Pradhan continues to have LLQ abdominal pain. She has been NPO, she has not been nauseated or vomiting, her pain is reduced when taking her pain meds. She denies fever, shortness of breath, blood in stool, dysuria. Objective Vital Signs - Last 8 Hours Temp Pulse Resp BP Pulse Ox 10/25/17 07:14 97.8 F 76 16 110/67 94 10/25/17 03:54 98.2 F 95 17 113/73 94 Intake and Output 10/24/17 10/25/17 10/25/17 23:59 07:59 15:59 Intake Total 1100 / 1100 1000 / 1000 240 / 240 Output Total 500 / 500 Balance 600 / 600 1000 / 1000 240 / 240 Intake: IV Fluids 1100 / 1100 1000 / 1000 0.9 % Sodium Chloride 1,000 ML 1000 / 1000 1000 / 1000 @ 125 mls/hr IVC .Q8H [facility] Rx#: [id number] Zosyn 3.375 GM In 0.9 % Sodium 100 / 100 Chloride (Mini-Bag +) 100 ML @ 25 mls/hr IVPB Q8HR [facility] Rx#: [id number] Oral 0 / 0 0 / 0 240 / 240 Output: Urine 500 / 500 Other: Meal NPO Dinner clears # Voids 1 Weight 93.5 kg Blood Glucose* 81 73 Patient Weight 10/25/17 23:59 Weight 93.5 kg - General physical appearance well developed, well nourished, no distress - Eyes normal ocular movement - ENT normal mucosa - Respiratory normal expansion, normal respiratory effort, clear to auscultation - Abdomen Abdomen: Present: bowel sounds present, soft, guarding (mild guarding). Absent : rigid Abdominal Tenderness: LLQ - Integumentary no abnormal pigmentation - Neurologic normal coordination, normal sensation - Musculoskeletal normal posture - Psychiatric speech is normal, memory intact - Labs 10/25/17 05:51 10/25/17 05:51 Diabetes panel 10/25/17 Range/Units 05:51 Sodium 137 (136-145) mEq/L Potassium 4.0 (3.5-5.1) mEq/L Chloride 107 (98-107) mEq/L Carbon Dioxide 22 L (23-29) mEq/L BUN 9 (8-23) mg/dL Creatinine 0.52 L (0.60-1.20) mg/dL Glucose 77 (70-105) mg/dL Calcium 8.3 L (8.6-10.3) mg/dL Calcium panel 10/25/17 Range/Units 05:51 Calcium 8.3 L (8.6-10.3) mg/dL Pituitary panel 10/25/17 Range/Units 05:51 Sodium 137 (136-145) mEq/L Potassium 4.0 (3.5-5.1) mEq/L Chloride 107 (98-107) mEq/L Carbon Dioxide 22 L (23-29) mEq/L BUN 9 (8-23) mg/dL Creatinine 0.52 L (0.60-1.20) mg/dL Glucose 77 (70-105) mg/dL Calcium 8.3 L (8.6-10.3) mg/dL Adrenal panel 10/25/17 Range/Units 05:51 Sodium 137 (136-145) mEq/L Potassium 4.0 (3.5-5.1) mEq/L Chloride 107 (98-107) mEq/L Carbon Dioxide 22 L (23-29) mEq/L BUN 9 (8-23) mg/dL Creatinine 0.52 L (0.60-1.20) mg/dL Glucose 77 (70-105) mg/dL Calcium 8.3 L (8.6-10.3) mg/dL Consult Discharge Plan - Plan Referrals: Mary Jo Dawkins CNP [Primary Care Provider] - <Collin Alexander - Last Filed: 05/03/18 11:04> Date of Encounter: 10/25/17 Objective Vital Signs - Last 8 Hours Temp Pulse Resp BP Pulse Ox 10/25/17 10:57 98.1 F 70 15 115/73 94 10/25/17 07:14 97.8 F 76 16 110/67 94 10/25/17 03:54 98.2 F 95 17 113/73 94 Intake and Output 10/24/17 10/25/17 10/25/17 23:59 07:59 15:59 Intake Total 1100 / 1100 1000 / 1000 340 / 340 Output Total 500 / 500 Balance 600 / 600 1000 / 1000 340 / 340 Intake: IV Fluids 1100 / 1100 1000 / 1000 100 / 100 0.9 % Sodium Chloride 1,000 ML 1000 / 1000 1000 / 1000 @ 125 mls/hr IVC .Q8H [facility] Rx#: [id number] Zosyn 3.375 GM In 0.9 % Sodium 100 / 100 100 / 100 Chloride (Mini-Bag +) 100 ML @ 25 mls/hr IVPB Q8HR [facility] Rx#: [id number] Oral 0 / 0 0 / 0 240 / 240 Output: Urine 500 / 500 Other: Meal NPO Dinner clears # Voids 1 Weight 93.5 kg Blood Glucose* 81 73 Patient Weight 10/25/17 23:59 Weight 93.5 kg - Labs 10/25/17 05:51 10/25/17 05:51 Diabetes panel 10/25/17 Range/Units 05:51 Sodium 137 (136-145) mEq/L Potassium 4.0 (3.5-5.1) mEq/L Chloride 107 (98-107) mEq/L Carbon Dioxide 22 L (23-29) mEq/L BUN 9 (8-23) mg/dL Creatinine 0.52 L (0.60-1.20) mg/dL Glucose 77 (70-105) mg/dL Calcium 8.3 L (8.6-10.3) mg/dL Calcium panel 10/25/17 Range/Units 05:51 Calcium 8.3 L (8.6-10.3) mg/dL Pituitary panel 10/25/17 Range/Units 05:51 Sodium 137 (136-145) mEq/L Potassium 4.0 (3.5-5.1) mEq/L Chloride 107 (98-107) mEq/L Carbon Dioxide 22 L (23-29) mEq/L BUN 9 (8-23) mg/dL Creatinine 0.52 L (0.60-1.20) mg/dL Glucose 77 (70-105) mg/dL Calcium 8.3 L (8.6-10.3) mg/dL Adrenal panel 10/25/17 Range/Units 05:51 Sodium 137 (136-145) mEq/L Potassium 4.0 (3.5-5.1) mEq/L Chloride 107 (98-107) mEq/L Carbon Dioxide 22 L (23-29) mEq/L BUN 9 (8-23) mg/dL Creatinine 0.52 L (0.60-1.20) mg/dL Glucose 77 (70-105) mg/dL Calcium 8.3 L (8.6-10.3) mg/dL - Attending Attestation I examined this patient and my medical decision-making was reviewed with the Resident Physician. I agree with the documented findings, disposition and treatment plan as described except to the extent set forth below. The patient is seen and evaluated on morning rounds. She continues to have left lower quadrant abdominal pain. She is afebrile. We will continue IV antibiotics and start bowel preparation for anticipated sigmoid colectomy next week Collin Alexander MD FACS
[2017-10-25] MEDS: *HR* Morphine 30 MG/ 30 ML PCA IVC PRN (10:16)
[2017-10-25] MEDS ORDERED: 0.9 % Sodium Chloride 1,000 ML ONE ×2 (13:26→22:06)
[2017-10-26] MEDS: Piperacillin/Tazobactam 3.375 GM in 0.9 % Sodium Chloride Mini Bag 100 ML IVPB SCH ×4 (01:13→23:08)
[2017-10-26] MEDS: *HR* Enoxaparin 40 MG/0.4 ML SYRINGE SQ SCH (05:30)
[2017-10-26] MEDS: Ondansetron 4 MG/2 ML VIAL IVP PRN ×3 (06:27→23:08)
[2017-10-26] MEDS: *HR* Morphine 30 MG/ 30 ML PCA IVC PRN (07:29)
[2017-10-26] MEDS: Pantoprazole 40 MG VIAL IVP SCH (07:50)
--- NOTE | 2017-10-26 10:12 | General Surgery Progress Note ---
<Grant Nazario - Last Filed: 10/26/17 10:18> Date of Encounter: 10/26/17 Time of Encounter: 08:30 - Assessment and Plan (1) Acute diverticulitis Current Visit: Yes Status: Acute No fevers overnight, no wt ct, creatinine WNL Exam continues to show mild guarding on deep palpation of LLQ. CT in ED shows persisting diverticulitis of proximal/mid sigmoid without abscess /perforation. Plan: Continuing Zosyn, holding off on bowel prep until patient low risk for rupturing diverticuli. Ideally want to see patient have significant decrease in pain/pain free before starting bowel prep CT abd/pelvis IV/GI contrast planned for Sunday Continue supportive care and pain management. Clear liquid diet. Subjective Narrative: Patient's pain persists in the LLQ. Patient reports no fevers, is able to urinate, no bowel movements since last encounter, last one 5/ she states was light and soft, non-bloody. Objective Vital Signs - Last 8 Hours Temp Pulse Resp BP Pulse Ox 10/26/17 08:33 95 10/26/17 07:50 97.9 F 69 14 123/78 95 10/26/17 03:24 97.7 F 75 16 136/85 92 Intake and Output 10/25/17 10/26/17 10/26/17 23:59 07:59 15:59 Intake Total 1340 / 1340 410 / 410 480 / 480 Output Total 0 / 0 Balance 1340 / 1340 410 / 410 480 / 480 Intake: IV Fluids 1100 / 1100 410 / 410 0.9 % Sodium Chloride 1,000 ML 1000 / 1000 @ 0 mls/hr .ROUTE .STK-MED [facility] Rx#:[id number] 0.9 % Sodium Chloride 1,000 ML 310 / 310 @ 30 mls/hr IVC .Q24H [facility] Rx#: [id number] Zosyn 3.375 GM In 0.9 % Sodium 100 / 100 100 / 100 Chloride (Mini-Bag +) 100 ML @ 25 mls/hr IVPB Q8HR [facility] Rx#: [id number] Oral 240 / 240 0 / 0 480 / 480 Output: Urine 0 / 0 Other: Meal clears Breakfast # Voids 1 1 Weight 93.5 kg Patient Weight 10/26/17 23:59 Weight 93.5 kg - General physical appearance well developed, well nourished, no distress - Eyes normal ocular movement - ENT normal mucosa - Neck Neck exam: no lymphadectomy - Respiratory normal expansion, normal respiratory effort, clear to auscultation - Cardiovascular Cardiovascular exam: Present: RRR, no murmurs/rubs/gallops. Absent: JVD - Abdomen Abdomen: Present: bowel sounds present, soft, guarding (very mild guarding). Absent: rigid Abdominal Tenderness: LLQ - Neurologic normal coordination, normal sensation - Musculoskeletal normal posture - Psychiatric speech is normal, memory intact - Labs 10/25/17 05:51 10/25/17 05:51 Consult Discharge Plan - Plan Referrals: Mary Jo Dawkins, MOTORCYCLE REPAIRER [Primary Care Provider] - <Collin Alexander - Last Filed: 10/26/17 12:33> Date of Encounter: 10/26/17 Objective Vital Signs - Last 8 Hours Temp Pulse Resp BP Pulse Ox 10/26/17 11:50 98.2 F 66 14 125/70 96 10/26/17 08:33 95 10/26/17 07:50 97.9 F 69 14 123/78 95 Intake and Output 10/25/17 10/26/17 10/26/17 23:59 07:59 15:59 Intake Total 1340 / 1340 410 / 410 679 / 679 Output Total 0 / 0 Balance 1340 / 1340 410 / 410 679 / 679 Intake: IV Fluids 1100 / 1100 410 / 410 199 / 199 0.9 % Sodium Chloride 1,000 ML 1000 / 1000 @ 0 mls/hr .ROUTE .STK-MED [facility] Rx#:[id number] 0.9 % Sodium Chloride 1,000 ML 310 / 310 99 / 99 @ 30 mls/hr IVC .Q24H [facility] Rx#: [id number] Zosyn 3.375 GM In 0.9 % Sodium 100 / 100 100 / 100 100 / 100 Chloride (Mini-Bag +) 100 ML @ 25 mls/hr IVPB Q8HR [facility] Rx#: [id number] Oral 240 / 240 0 / 0 480 / 480 Output: Urine 0 / 0 Other: Meal clears Breakfast # Voids 1 1 1 Weight 93.5 kg Patient Weight 10/26/17 23:59 Weight 93.5 kg - Labs 10/25/17 05:51 10/25/17 05:51 - Attending Attestation I examined this patient and my medical decision-making was reviewed with the Resident Physician. I agree with the documented findings, disposition and treatment plan as described except to the extent set forth below. The patient is seen and evaluated on morning rounds with resident. She continues to have pain and is tender in the left lower quadrant to palpation. We will continue clear liquids and antibiotic therapy. We will plan to repeat her CAT scan on Sunday. If CAT scan demonstrates no evidence of abscess, we will proceed with bowel preparation on Sunday and sigmoid colectomy on Sunday Collin Alexander MD FACS
[2017-10-27] MEDS: 0.9 % Sodium Chloride 1,000 ML IVC SCH (05:16)
[2017-10-27] MEDS: *HR* Enoxaparin 40 MG/0.4 ML SYRINGE SQ SCH (05:16)
[2017-10-27 07:11] LABS: Basophils % 0.4 %; Eosinophils # 0.2 K/mcL (0.0-0.6); Eosinophils % 3.5 %; Hematocrit 34.4 % (35.3-44.9); Hemoglobin 11.1 g/dL (11.5-15.4); Immature Granulocytes % 0.2 % (0-4); Lymphocytes # 1.4 K/mcL (0.6-4.6); Lymphocytes % 25.7 %; Mean Corpuscular HGB Conc 32.3 g/dL (31.6-35.5); Mean Corpuscular Hemoglobin 27.8 pg (28.0-33.3); Monocytes # 0.5 K/mcL (0.0-1.3); Monocytes % 8.6 %; Neutrophils # 3.4 K/mcL (1.6-8.9); Platelet Count 174 K/mcL (140-400); Red Cell Distribution Width 13.4 % (11.5-14.5); Segmented Neutrophils % 61.6 %
[2017-10-27 07:31] LABS: BUN/Creatinine Ratio 8 (6-26); Blood Urea Nitrogen 4 mg/dL (8-23); Calcium 8.6 mg/dL (8.6-10.3); Carbon Dioxide 32 mEq/L (23-29); Chloride 104 mEq/L (98-107); Glucose 96 mg/dL (70-105); Magnesium 1.7 mg/dL (1.6-2.6); Osmolality,Calculated 291 (280-300); Phosphorous 2.2 mg/dL (2.7-4.5); Potassium 3.4 mEq/L (3.5-5.1); Sodium 142 mEq/L (136-145); eGFR For African Americans > 60 (> 60); eGFR For Non-African Americans > 60 (> 60)
[2017-10-27 07:42] LABS: Carcinoembryonic Antigen 5.2 ng/mL (Less than 5.0)
[2017-10-27] MEDS: Piperacillin/Tazobactam 3.375 GM in 0.9 % Sodium Chloride Mini Bag 100 ML IVPB SCH ×2 (09:22→17:00)
[2017-10-27] MEDS: Pantoprazole 40 MG VIAL IVP SCH (09:22)
[2017-10-27] MEDS ORDERED: Ipratropium/Albuterol Neb 3 ML IH PRN (12:06)
--- NOTE | 2017-10-27 14:38 | General Surgery Progress Note ---
<Grant Nazario - Last Filed: 10/27/17 14:40> Date of Encounter: 10/27/17 Time of Encounter: 08:45 - Assessment and Plan (1) Acute diverticulitis Current Visit: Yes Status: Acute No fevers overnight, no wt ct, creatinine WNL Today she has continued pain, she has mild tenderness to palpation of LLQ. CT in ED shows persisting diverticulitis of proximal/mid sigmoid without abscess /perforation. Clinically and imaging gagnon, she has smoldering diverticiulitis refractory to iv abx. Plan: Continuing Zosyn, holding off on bowel prep until patient low risk for rupturing diverticuli. Ideally want to see patient have significant decrease in pain/pain free before starting bowel prep CT abd/pelvis IV/GI contrast planned for Sunday Continue supportive care and pain management. Clear liquid diet. Subjective Narrative: Ms. Pradhan continues to have LLQ pain; she had a bowel movement today, she has had no fevers but she reports mild productive cough. No vomiting on clear liquid diet. Objective Vital Signs - Last 8 Hours Temp Pulse Resp BP Pulse Ox 10/27/17 11:48 97.6 F 70 15 142/82 98 Intake and Output 10/26/17 10/27/17 10/27/17 23:59 07:59 15:59 Intake Total 100 / 100 400 / 400 360 / 360 Output Total 0 / 0 100 / 100 Balance 100 / 100 300 / 300 360 / 360 Intake: IV Fluids 100 / 100 400 / 400 0.9 % Sodium Chloride 1,000 ML 300 / 300 @ 30 mls/hr IVC .Q24H [facility] Rx#: [id number] Zosyn 3.375 GM In 0.9 % Sodium 100 / 100 100 / 100 Chloride (Mini-Bag +) 100 ML @ 25 mls/hr IVPB Q8HR [facility] Rx#: [id number] Oral 0 / 0 0 / 0 360 / 360 Output: Urine 0 / 0 100 / 100 Other: Meal Dinner Lunch Percent of Meal Consumed 0% Stool Size Large Stool Consistency soft Stool Color Brown # Voids 1 1 1 # Bowel Movements 1 0 1 Weight 93.45 kg Patient Weight 10/27/17 23:59 Weight 93.45 kg - General physical appearance well developed, well nourished, no distress - Eyes normal ocular movement - ENT normal mucosa - Neck Neck exam: no lymphadectomy - Respiratory normal expansion, clear to percussion, clear to auscultation - Cardiovascular Cardiovascular exam: Present: RRR, no murmurs/rubs/gallops. Absent: JVD - Abdomen Abdomen: Present: soft Abdominal Tenderness: LLQ - Integumentary no abnormal pigmentation - Neurologic normal coordination, normal sensation - Musculoskeletal normal posture - Psychiatric speech is normal, memory intact - Labs 10/27/17 06:29 10/27/17 06:29 Diabetes panel 10/27/17 Range/Units 06:29 Sodium 142 (136-145) mEq/L Potassium 3.4 L (3.5-5.1) mEq/L Chloride 104 (98-107) mEq/L Carbon Dioxide 32 H (23-29) mEq/L BUN 4 L (8-23) mg/dL Creatinine 0.48 L (0.60-1.20) mg/dL Glucose 96 (70-105) mg/dL Calcium 8.6 (8.6-10.3) mg/dL Calcium panel 10/27/17 Range/Units 06:29 Calcium 8.6 (8.6-10.3) mg/dL Phosphorus 2.2 L (2.7-4.5) mg/dL Pituitary panel 10/27/17 Range/Units 06:29 Sodium 142 (136-145) mEq/L Potassium 3.4 L (3.5-5.1) mEq/L Chloride 104 (98-107) mEq/L Carbon Dioxide 32 H (23-29) mEq/L BUN 4 L (8-23) mg/dL Creatinine 0.48 L (0.60-1.20) mg/dL Glucose 96 (70-105) mg/dL Calcium 8.6 (8.6-10.3) mg/dL Adrenal panel 10/27/17 Range/Units 06:29 Sodium 142 (136-145) mEq/L Potassium 3.4 L (3.5-5.1) mEq/L Chloride 104 (98-107) mEq/L Carbon Dioxide 32 H (23-29) mEq/L BUN 4 L (8-23) mg/dL Creatinine 0.48 L (0.60-1.20) mg/dL Glucose 96 (70-105) mg/dL Calcium 8.6 (8.6-10.3) mg/dL Consult Discharge Plan - Plan Referrals: Lower,Mary Jo L, FOOD ASSEMBLER [Primary Care Provider] - <Kristian Ren - Last Filed: 10/28/17 08:14> Date of Encounter: 10/27/17 Objective Vital Signs - Last 8 Hours Temp Pulse Resp BP Pulse Ox 10/28/17 07:19 97.8 F 77 16 139/83 96 10/28/17 04:12 98.3 F 78 16 132/81 96 Intake and Output 10/27/17 10/28/17 10/28/17 23:59 07:59 15:59 Intake Total 940 / 940 672 / 672 Output Total 0 / 0 0 / 0 Balance 940 / 940 672 / 672 Intake: IV Fluids 100 / 100 672 / 672 0.9 % Sodium Chloride 1,000 ML 572 / 572 @ 30 mls/hr IVC .Q24H [facility] Rx#: [id number] Zosyn 3.375 GM In 0.9 % Sodium 100 / 100 100 / 100 Chloride (Mini-Bag +) 100 ML @ 25 mls/hr IVPB Q8HR [facility] Rx#: [id number] Oral 840 / 840 0 / 0 Output: Urine 0 / 0 0 / 0 Other: Meal Clear Stool Size Moderate Stool Consistency loose Stool Characteristics Tarry Stool Color Brown # Voids 2 2 # Bowel Movements 0 Weight 93.655 kg Patient Weight 10/28/17 23:59 Weight 93.655 kg - Labs 10/27/17 06:29 10/27/17 06:29 - Attending Attestation I examined this patient and my medical decision-making was reviewed with the Resident Physician. I agree with the documented findings, disposition and treatment plan as described except to the extent set forth below. I reviewed the above assessment and evaluation with the resident and agree with the above plan. Patient continues to some mild abdominal discomfort and when pressed states that her pain is relatively unchanged. On examination she has some mild tenderness to palpation in the lower abdomen. Positive bowel sounds. Continue with IV antibiotics and IV fluids. Continue with clears. Likely repeat CT scan on 10/29/2017.
[2017-10-27] MEDS: Ipratropium/Albuterol Neb 3 ML IH SCH ×3 (15:54→21:28)
[2017-10-28] MEDS: 0.9 % Sodium Chloride 1,000 ML IVC SCH ×2 (00:23→20:51)
[2017-10-28] MEDS: Piperacillin/Tazobactam 3.375 GM in 0.9 % Sodium Chloride Mini Bag 100 ML IVPB SCH ×3 (00:24→15:50)
[2017-10-28] MEDS: Ipratropium/Albuterol Neb 3 ML IH SCH ×4 (04:33→22:40)
[2017-10-28] MEDS: *HR* Enoxaparin 40 MG/0.4 ML SYRINGE SQ SCH (06:06)
[2017-10-28] MEDS: Pantoprazole 40 MG VIAL IVP SCH (09:27)
[2017-10-28] MEDS: Ondansetron 4 MG/2 ML VIAL IVP PRN (10:08)
[2017-10-28] MEDS ORDERED: Isovue-370 500 ML INFUS..BTL IV ONE (10:49)
--- NOTE | 2017-10-28 13:42 | General Surgery Progress Note ---
<Grant Nazario - Last Filed: 10/28/17 13:42> Date of Encounter: 10/28/17 Time of Encounter: 08:30 - Assessment and Plan (1) Acute diverticulitis Current Visit: Yes Status: Acute No fevers overnight, no wt ct, creatinine WNL LLQ pain persists since admission without improvement CT in ED shows persisting diverticulitis of proximal/mid sigmoid without abscess /perforation. Clinically and imaging gagnon, she has smoldering diverticiulitis refractory to iv abx. Plan: Cont Clear liquid diet, pain management, breathing treatments Ct abd/pelvis with iv and oral contrast ordered for 0800 tomorrow 10/29 assessing for drainable abscess/progression of diverticulitis assessing for readiness for bowel prep/trying to avoid increasing colonic pressure in setting of diverticulitis Subjective Patient reports: still having pain, tolerating liquids well (no vomiting, no fevers, no bloating), voiding w/o difficulty, flatus, bowel movement (loose), afebrile Objective Vital Signs - Last 8 Hours Temp Pulse Resp BP Pulse Ox 10/28/17 11:08 97.5 F L 58 18 149/73 92 10/28/17 07:19 97.8 F 77 16 139/83 96 Intake and Output 10/27/17 10/28/17 10/28/17 23:59 07:59 15:59 Intake Total 940 / 940 672 / 672 240 / 240 Output Total 0 / 0 0 / 0 Balance 940 / 940 672 / 672 240 / 240 Intake: IV Fluids 100 / 100 672 / 672 0.9 % Sodium Chloride 1,000 ML 572 / 572 @ 30 mls/hr IVC .Q24H [facility] Rx#: [id number] Zosyn 3.375 GM In 0.9 % Sodium 100 / 100 100 / 100 Chloride (Mini-Bag +) 100 ML @ 25 mls/hr IVPB Q8HR [facility] Rx#: [id number] Oral 840 / 840 0 / 0 240 / 240 Output: Urine 0 / 0 0 / 0 Other: Meal Clear Clear Stool Size Moderate Large Stool Consistency loose liquid Stool Characteristics Tarry Tarry Stool Color Brown Brown # Voids 2 2 1 # Bowel Movements 0 1 Weight 93.655 kg Patient Weight 10/28/17 23:59 Weight 93.655 kg - General physical appearance well developed, well nourished, no distress - Eyes normal ocular movement - ENT normal mucosa - Neck Neck exam: no lymphadectomy - Respiratory normal expansion, normal respiratory effort, clear to auscultation - Cardiovascular Cardiovascular exam: Present: RRR, no murmurs/rubs/gallops. Absent: JVD - Abdomen Abdomen: Present: bowel sounds present, soft Abdominal Tenderness: LLQ (not improving) - Integumentary no abnormal pigmentation - Neurologic normal coordination, normal sensation - Musculoskeletal normal posture - Psychiatric speech is normal, memory intact - Labs 10/27/17 06:29 10/27/17 06:29 Consult Discharge Plan - Plan Referrals: Mary Jo Dawkins, WHEEL SETTER [Primary Care Provider] - <Kristian Ren - Last Filed: 10/30/17 07:43> Date of Encounter: 10/28/17 Objective Vital Signs - Last 8 Hours Temp Pulse Resp BP Pulse Ox 10/30/17 07:31 97.8 F 74 18 142/87 96 10/30/17 04:02 97.6 F 87 15 135/85 96 10/30/17 03:18 15 97 Intake and Output 10/29/17 10/29/17 10/30/17 15:59 23:59 07:59 Intake Total 622 / 622 100 / 100 0 / 0 Output Total 0 / 0 Balance 622 / 622 100 / 100 0 / 0 Intake: IV Fluids 622 / 622 100 / 100 KCl 40 MEQ Xylocaine 2 ML In 522 / 522 Dextrose 5% 500 ML @ 130.5 mls/ hr IVC Q4H [facility] Rx#:[id number] Zosyn 3.375 GM In 0.9 % Sodium 100 / 100 100 / 100 Chloride (Mini-Bag +) 100 ML @ 25 mls/hr IVPB Q8HR [facility] Rx#: [id number] Oral 0 / 0 0 / 0 0 / 0 Output: Urine 0 / 0 Other: Meal Clear Clear Percent of Meal Consumed 0% 0% Stool Size Large Stool Consistency liquid Stool Color Green # Voids 1 1 1 # Bowel Movements 0 1 0 # Bowel Movement Diapers 1 Weight 93.9 kg Blood Glucose* 164 108 Patient Weight 10/30/17 23:59 Weight 93.9 kg - Labs 10/29/17 05:14 10/30/17 04:00 Diabetes panel 10/29/17 10/30/17 Range/Units 05:14 04:00 Sodium 141 142 (136-145) mEq/L Potassium 2.5 L* 2.6 L (3.5-5.1) mEq/L Chloride 100 104 (98-107) mEq/L Carbon Dioxide 30 H 29 (23-29) mEq/L BUN 4 L 6 L (8-23) mg/dL Creatinine 0.49 L 0.45 L (0.60-1.20) mg/dL Glucose 100 139 H (70-105) mg/dL Calcium 8.7 8.7 (8.6-10.3) mg/dL Triglycerides 111 (< 150) mg/dL Calcium panel 10/29/17 10/30/17 Range/Units 05:14 04:00 Calcium 8.7 8.7 (8.6-10.3) mg/dL Phosphorus 2.5 L 2.1 L (2.7-4.5) mg/dL Pituitary panel 10/29/17 10/30/17 Range/Units 05:14 04:00 Sodium 141 142 (136-145) mEq/L Potassium 2.5 L* 2.6 L (3.5-5.1) mEq/L Chloride 100 104 (98-107) mEq/L Carbon Dioxide 30 H 29 (23-29) mEq/L BUN 4 L 6 L (8-23) mg/dL Creatinine 0.49 L 0.45 L (0.60-1.20) mg/dL Glucose 100 139 H (70-105) mg/dL Calcium 8.7 8.7 (8.6-10.3) mg/dL Adrenal panel 10/29/17 10/30/17 Range/Units 05:14 04:00 Sodium 141 142 (136-145) mEq/L Potassium 2.5 L* 2.6 L (3.5-5.1) mEq/L Chloride 100 104 (98-107) mEq/L Carbon Dioxide 30 H 29 (23-29) mEq/L BUN 4 L 6 L (8-23) mg/dL Creatinine 0.49 L 0.45 L (0.60-1.20) mg/dL Glucose 100 139 H (70-105) mg/dL Calcium 8.7 8.7 (8.6-10.3) mg/dL - Attending Attestation I examined this patient and my medical decision-making was reviewed with the Resident Physician. I agree with the documented findings, disposition and treatment plan as described except to the extent set forth below. I reviewed the above assessment and evaluation with the resident and agree with the above plan. Still with lower abdominal pain and noted discomfort in the area on exam. Soft abdomen. COntinue with IV abx. Will order for CT of the abdomen and pelvis tomorrow. Dr. Alexander to return tomorrow.
[2017-10-28] MEDS: *HR* Morphine 30 MG/ 30 ML PCA IVC PRN (20:51)
[2017-10-29] MEDS: Piperacillin/Tazobactam 3.375 GM in 0.9 % Sodium Chloride Mini Bag 100 ML IVPB SCH ×3 (00:53→16:07)
[2017-10-29] MEDS: Ipratropium/Albuterol Neb 3 ML IH SCH ×4 (03:42→21:23)
[2017-10-29 05:57] LABS: Basophils % 0.5 %; Eosinophils # 0.3 K/mcL (0.0-0.6); Eosinophils % 4.2 %; Hematocrit 35.6 % (35.3-44.9); Hemoglobin 11.6 g/dL (11.5-15.4); Immature Granulocytes % 0.3 % (0-4); Lymphocytes # 1.3 K/mcL (0.6-4.6); Lymphocytes % 19.8 %; Mean Corpuscular HGB Conc 32.6 g/dL (31.6-35.5); Mean Corpuscular Hemoglobin 27.5 pg (28.0-33.3); Mean Corpuscular Volume 84.4 fL (83.0-100.0); Mean Platelet Volume 10.1 fL (9.4-12.4); Monocytes # 0.4 K/mcL (0.0-1.3); Monocytes % 6.5 %; Neutrophils # 4.4 K/mcL (1.6-8.9); Platelet Count 195 K/mcL (140-400); Red Blood Count 4.22 M/mcL (3.82-4.97); Segmented Neutrophils % 68.7 %
[2017-10-29 06:04] LABS: BUN/Creatinine Ratio 8 (6-26); Blood Urea Nitrogen 4 mg/dL (8-23); Calcium 8.7 mg/dL (8.6-10.3); Carbon Dioxide 30 mEq/L (23-29); Chloride 100 mEq/L (98-107); Glucose 100 mg/dL (70-105); Osmolality,Calculated 289 (280-300); Potassium 2.5 mEq/L (3.5-5.1); Sodium 141 mEq/L (136-145); eGFR For African Americans > 60 (> 60); eGFR For Non-African Americans > 60 (> 60)
[2017-10-29] MEDS: *HR* Enoxaparin 40 MG/0.4 ML SYRINGE SQ SCH (06:36)
[2017-10-29] MEDS: Potassium Chloride 40 MEQ, Lidocaine 1% 2 ML in D5% in Water 500 ML IVC SCH ×2 (06:49→11:17)
--- NOTE | 2017-10-29 08:28 | General Surgery Progress Note ---
<TishasyedaarjunNadeem hayes - Last Filed: 10/29/17 14:35> Date of Encounter: 10/29/17 Time of Encounter: 06:15 - Assessment and Plan (2) Acute diverticulitis Current Visit: Yes Status: Acute Patient to undergo abdominal CT scan this morning. If imaging reveals no abscess, pus, or inflammation then rectosigmoidectomy followed by a anastomosis of the colon will be performed. However if there is pus or inflammation discovered on imaging, we will proceed with Alexia's procedure involving a temporary colostomy. - Continue clear liquid diet, pain management, breathing treatments. - Bowel prep. - Plan for surgery tomorrow. - Bowel prep (neomycine/flagyl) - NPO at midnight. (4) Hypokalemia Current Visit: Yes Status: Acute Potassium level dropped to 2.5. - 40 mEq of potassium IV - 40 meEq PO potassium Subjective Patient reports: pain is less, flatus, bowel movement Narrative: Patient says that the pain in her left lower quadrant has improved from a 6 out of 10 yesterday to a 3 out of 10 today. She has had 1 bowel movement today. She attests to tarry stools. No signs of gross blood in her stool. She denies any nausea or vomiting. She does say that she has been passing gas as well. She denies any chest pain or shortness of breath. Denies any fever. Denies any dysuria or hematuria. Objective Vital Signs - Last 8 Hours Temp Pulse Resp BP Pulse Ox 10/29/17 07:55 97.9 F 75 18 148/92 96 10/29/17 03:56 98.4 F 81 18 121/71 94 10/29/17 03:42 16 93 Intake and Output 10/28/17 10/29/17 10/29/17 23:59 07:59 15:59 Intake Total 991 / 991 100 / 100 Output Total 0 / 0 Balance 991 / 991 100 / 100 Intake: IV Fluids 631 / 631 100 / 100 0.9 % Sodium Chloride 1,000 ML 531 / 531 @ 30 mls/hr IVC .Q24H [facility] Rx#: [id number] Zosyn 3.375 GM In 0.9 % Sodium 100 / 100 100 / 100 Chloride (Mini-Bag +) 100 ML @ 25 mls/hr IVPB Q8HR [facility] Rx#: [id number] Oral 360 / 360 0 / 0 Output: Urine 0 / 0 Other: Meal Dinner Percent of Meal Consumed 30% Stool Size Moderate Stool Consistency loose liquid Stool Color Brown Yellow # Voids 1 1 # Bowel Movements 2 2 - General physical appearance well developed, well nourished, no distress - Respiratory normal expansion, normal respiratory effort, clear to percussion, clear to auscultation - Cardiovascular Cardiovascular exam: Present: RRR. Absent: murmurs - Abdomen Abdomen: Present: bowel sounds present, soft, tender (Mild), guarding ( Involuntary). Absent: rebound, rigid Abdominal Tenderness: LLQ - Labs 10/29/17 05:14 10/29/17 05:14 Diabetes panel 10/29/17 Range/Units 05:14 Sodium 141 (136-145) mEq/L Potassium 2.5 L* (3.5-5.1) mEq/L Chloride 100 (98-107) mEq/L Carbon Dioxide 30 H (23-29) mEq/L BUN 4 L (8-23) mg/dL Creatinine 0.49 L (0.60-1.20) mg/dL Glucose 100 (70-105) mg/dL Calcium 8.7 (8.6-10.3) mg/dL Calcium panel 10/29/17 Range/Units 05:14 Calcium 8.7 (8.6-10.3) mg/dL Pituitary panel 10/29/17 Range/Units 05:14 Sodium 141 (136-145) mEq/L Potassium 2.5 L* (3.5-5.1) mEq/L Chloride 100 (98-107) mEq/L Carbon Dioxide 30 H (23-29) mEq/L BUN 4 L (8-23) mg/dL Creatinine 0.49 L (0.60-1.20) mg/dL Glucose 100 (70-105) mg/dL Calcium 8.7 (8.6-10.3) mg/dL Adrenal panel 10/29/17 Range/Units 05:14 Sodium 141 (136-145) mEq/L Potassium 2.5 L* (3.5-5.1) mEq/L Chloride 100 (98-107) mEq/L Carbon Dioxide 30 H (23-29) mEq/L BUN 4 L (8-23) mg/dL Creatinine 0.49 L (0.60-1.20) mg/dL Glucose 100 (70-105) mg/dL Calcium 8.7 (8.6-10.3) mg/dL Consult Discharge Plan - Plan Referrals: Mary Jo Dawkins CNP [Primary Care Provider] - <Koko Alexandern Padilla - Last Filed: 10/31/17 10:22> Date of Encounter: 10/29/17 Objective Vital Signs - Last 8 Hours Temp Pulse Resp BP Pulse Ox 10/31/17 09:20 95 10/31/17 07:13 97.7 F 106 16 151/96 95 10/31/17 03:59 97.5 F L 77 18 151/90 94 Intake and Output 10/30/17 10/31/17 10/31/17 23:59 07:59 15:59 Intake Total 0 / 0 1660 / 1660 Output Total 1550 / 1550 750 / 750 Balance -1550 / -1550 910 / 910 Intake: IV Fluids 1660 / 1660 KCl 20mEq IN D5%-0.45 NACL 20 1000 / 1000 meq In 1,000 ml @ 100 mls/hr IVC .Q10H [facility] Rx#:[id number] Intralipid 20% 250 ML @ 21 mls/ 250 / 250 hr IVPB DAILY@1700 [facility] Rx#: [id number] Magnesium Sulfate Premix 2gm/ 50 / 50 50mL 2 gm In 50 ml @ 50 mls/hr IVPB ONCE ONE Rx#:[id number] Zosyn 3.375 GM In 0.9 % Sodium 100 / 100 Chloride (Mini-Bag +) 100 ML @ 25 mls/hr IVPB Q8HR [facility] Rx#: [id number] Potassium Phosphate 44 MEQ In 0 260 / 260 .9 % Sodium Chloride 250 ML @ 40 mls/hr IVPB ONCE ONE Rx#: [id number] Oral 0 / 0 0 / 0 Output: Urine 0 / 0 Catheter 1550 / 1550 750 / 750 Other: Meal NPO DINNER NPO BREAKFAST Weight 93.88 kg Blood Glucose* 264 158 Patient Weight 10/31/17 23:59 Weight 93.88 kg - Labs 10/31/17 04:00 10/31/17 04:00 Diabetes panel 10/31/17 Range/Units 04:00 Sodium 133 L D (136-145) mEq/L Potassium 3.4 L D (3.5-5.1) mEq/L Chloride 98 (98-107) mEq/L Carbon Dioxide 27 (23-29) mEq/L BUN 9 (8-23) mg/dL Creatinine 0.46 L (0.60-1.20) mg/dL Glucose 215 H (70-105) mg/dL Calcium 8.3 L (8.6-10.3) mg/dL Calcium panel 10/31/17 Range/Units 04:00 Calcium 8.3 L (8.6-10.3) mg/dL Phosphorus 2.6 L (2.7-4.5) mg/dL Pituitary panel 10/31/17 Range/Units 04:00 Sodium 133 L D (136-145) mEq/L Potassium 3.4 L D (3.5-5.1) mEq/L Chloride 98 (98-107) mEq/L Carbon Dioxide 27 (23-29) mEq/L BUN 9 (8-23) mg/dL Creatinine 0.46 L (0.60-1.20) mg/dL Glucose 215 H (70-105) mg/dL Calcium 8.3 L (8.6-10.3) mg/dL Adrenal panel 10/31/17 Range/Units 04:00 Sodium 133 L D (136-145) mEq/L Potassium 3.4 L D (3.5-5.1) mEq/L Chloride 98 (98-107) mEq/L Carbon Dioxide 27 (23-29) mEq/L BUN 9 (8-23) mg/dL Creatinine 0.46 L (0.60-1.20) mg/dL Glucose 215 H (70-105) mg/dL Calcium 8.3 L (8.6-10.3) mg/dL - Attending Attestation I examined this patient and my medical decision-making was reviewed with the Resident Physician. I agree with the documented findings, disposition and treatment plan as described except to the extent set forth below. The patient is seen and evaluated on morning rounds with resident. CAT scan will be ordered today. We will proceed with surgical intervention tomorrow if no abscess is present. Collin Alexander MD FACS
[2017-10-29] MEDS: Pantoprazole 40 MG VIAL IVP SCH (09:25)
[2017-10-29] MEDS ORDERED: Lidocaine -MPF 1% 5 ML AMPUL INFILT ONE (10:35)
[2017-10-29] MEDS ORDERED: Polyethylene Glycol 3350 255 GM POWDER PO ONE (10:47)
[2017-10-29] MEDS: 0.9 % Sodium Chloride 1,000 ML IVC SCH ×2 (11:17→17:37)
[2017-10-29] MEDS ORDERED: D10% in Water 500 ML IVC PRN (11:38)
[2017-10-29 11:52] LABS: Phosphorous 2.5 mg/dL (2.7-4.5)
[2017-10-29] MEDS: *HR* LORazepam 2 MG/ML VIAL IVP PRN ×2 (14:39→22:11)
[2017-10-29] MEDS: metroNIDAZOLE 500 MG TABLET PO SCH ×3 (14:39→21:36)
[2017-10-29] MEDS ORDERED: Clinimix E 5%-15% SOLUTION 2,000 ML with MVI, adult with vitamin K 10 ML IVC SCH (17:00)
[2017-10-30] MEDS: Piperacillin/Tazobactam 3.375 GM in 0.9 % Sodium Chloride Mini Bag 100 ML IVPB SCH ×2 (00:22→08:00)
[2017-10-30] MEDS: Ipratropium/Albuterol Neb 3 ML IH SCH ×4 (03:17→21:32)
[2017-10-30] MEDS: *HR* Enoxaparin 40 MG/0.4 ML SYRINGE SQ SCH (05:58)
[2017-10-30 06:00] LABS: BUN/Creatinine Ratio 13 (6-26); Blood Urea Nitrogen 6 mg/dL (8-23); Calcium 8.7 mg/dL (8.6-10.3); Carbon Dioxide 29 mEq/L (23-29); Chloride 104 mEq/L (98-107); Glucose 139 mg/dL (70-105); Magnesium 1.4 mg/dL (1.6-2.6); Osmolality,Calculated 294 (280-300); Phosphorous 2.1 mg/dL (2.7-4.5); Potassium 2.6 mEq/L (3.5-5.1); Sodium 142 mEq/L (136-145); Triglycerides 111 mg/dL (< 150); eGFR For African Americans > 60 (> 60); eGFR For Non-African Americans > 60 (> 60)
[2017-10-30] MEDS: Pantoprazole 40 MG VIAL IVP SCH (08:00)
--- NOTE | 2017-10-30 12:11 | Anesthesia Evaluation PreOp ---
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 Any Significant HX Anesthesia History: No Prior Anesthetic Complications, Past Anesthesia (appy ROB ) Alcohol Use: none Drug use: none Medications and Allergies Aspirin [Adult Aspirin Regimen] 81 mg PO DAILY 09/29/17 [History] Sertraline [Zoloft] 100 mg PO DAILY 09/29/17 [History] 3 Allergy/AdvReac Type Severity Reaction Status Date / Time No Known Allergies Allergy Verified 10/24/17 09:55 - Meds/Allergy Pre-op Review Medications Reviewed: Yes Allergies Reviewed: Yes Beta Blockers on Current Med List: No Anesthesia Results - Labs 10/29/17 05:14 10/30/17 04:00 - Imaging EKG: report reviewed (SINUS RHYTHM POSSIBLE LEFT ATRIAL ENLARGEMENT LOW QRS VOLTAGE IN PRECORDIAL LEADS POSSIBLE RIGHT VENTRICULAR CONDUCTION DELAY SEPTAL MYOCARDIAL INFARCTION, OF INDETERMINATE AGE) Additional studies: echo 2016: Impressions: Technically sub-optimal due to poor echocardiographic windows. Hyperdynamic LV systolic function, LVEF > 75%. Mild left ventricular diastolic dysfunction. Normal right ventricular structure and function. The aortic root is mildly dilated, measuring 3.9 cm at the sinuses of Valsalva. Cardiac valves were not well visualized. No evidence of significant valvular dysfunction. Unable to estimate RVSP due to lack of TR jet. Anesthesia Exam Selected Entries 10/30/17 11:17 Temperature 97.6 F Temperature Source Oral Pulse Rate 85 Respiratory Rate 22 Blood Pressure 124/76 O2 Sat by Pulse Oximetry 94 Oxygen Flow Rate (LPM) 4 Oxygen Delivery Method Nasal Cannula Weight: 94kg NPO (# of Hours): 8 <Jackie Barahona - Last Filed: 10/30/17 13:41> Date of Encounter: 10/30/17 - Past History Cardiac History: HTN (Not formally diagnosed. Not medicated) Other Medical History: Denies Any Significant HX Anesthesia History: Past Anesthesia (appy, ROB, T&A, Debbie, Bladder sling) Anesthesia Results - Labs 10/29/17 05:14 10/30/17 04:00 Laboratory Results Impressions Abdomen/Pelvis CT 10/29/17 08:00 IMPRESSION: Persistent findings compatible with sigmoid diverticulitis. No evidence for obstruction, perforation or intraperitoneal abscess formation. Persistent small focal fluid collection within the superior wall of the sigmoid colon in the region of inflammation, similar to prior noncontrast exam 10/23/2017 but decreased in size from prior exam 10/02/2017. This could reflect the inflamed diverticulum or could reflect a small intramural collection such as intramural abscess relating to the diverticulitis. Trace ascites, worsened from more recent exam. Cholelithiasis. D/ / 10/29/2017 10:30:03 Deandre Paula MD / Eunice Batista Interpreting Provider: Deandre Paula MD Anesthesia Exam Vital Signs Temp Pulse Resp BP Pulse Ox 10/30/17 11:17 97.6 F 85 22 124/76 94 10/30/17 09:16 82 20 10/30/17 08:20 96 10/30/17 07:31 97.8 F 74 18 142/87 96 10/30/17 04:02 97.6 F 87 15 135/85 96 10/30/17 03:18 15 97 10/29/17 23:38 98.1 F 73 15 162/81 95 10/29/17 21:24 14 97 10/29/17 19:20 97.4 F L 85 15 145/90 95 10/29/17 15:44 20 93 10/29/17 14:40 97.9 F 73 20 144/88 93 Intake and Output 10/29/17 10/30/17 10/30/17 23:59 07:59 15:59 Intake Total 100 / 100 100 / 100 300 / 300 Output Total 0 / 0 Balance 100 / 100 100 / 100 300 / 300 Intake: IV Fluids 100 / 100 100 / 100 300 / 300 Zosyn 3.375 GM In 0.9 % Sodium 100 / 100 100 / 100 Chloride (Mini-Bag +) 100 ML @ 25 mls/hr IVPB Q8HR [facility] Rx#: [id number] Potassium Chloride 10 mEq/100mL 300 / 300 10 meq In 100 ml @ 100 mls/hr IVPB Q1H [facility] Rx#:[id number] Oral 0 / 0 0 / 0 0 / 0 Output: Urine 0 / 0 Other: Meal Clear NPO Percent of Meal Consumed 0% 0% Stool Size Large Stool Consistency liquid Stool Color Green # Voids 1 1 # Bowel Movements 1 0 # Bowel Movement Diapers 1 Weight 93.9 kg Blood Glucose* 164 108 132 Patient Weight 10/30/17 23:59 Weight 93.9 kg Height: 5'6" Weight: 207# BMI = 33.5 - HEENT Pupil (Motor): Pupils equal, EOMI Mallampati: II Teeth: Edentulous Oral Opening: Greater than 3 - VENDING ATTENDANT LOC: Oriented - Cardiac Rhythm: Regular Murmur: None - Pulmonary Breath Sounds: bilateral Clear Respiratory Effort: Symmetrical Anesthesia Assess/Plan ASA Score: 3 (COPD, Obesity, Uncontrolled DM) Modified Tok Scale for Level of Consciousness: Cooperative, oriented, and tranquil Anesthetic Plan: General Monitoring Plan: Standard Monitors Recovery Plan: PACU Anes Supervising Prov Stmt: Pt seen/evaluated, R&B Discussed, questions answered and consent obtained. Raz Nguyen MD
[2017-10-30] MEDS ORDERED: Acetaminophen IV 1,000 MG/100 ML INFUS..BTL ONE (12:25)
[2017-10-30] MEDS ORDERED: *HR* FentaNYL PATCH 25 MCG PATCH TD ONE (12:41)
[2017-10-30] MEDS ORDERED: Lidocaine -MPF 2% 2 ML VIAL ONE (12:41)
[2017-10-30] MEDS ORDERED: *HR* Propofol 200 MG/20 ML VIAL IVP ONE (12:41)
[2017-10-30] MEDS ORDERED: *HR* FentaNYL (PF) 100 MCG/2 ML VIAL ONE (12:41)
[2017-10-30] MEDS ORDERED: *HR* Midazolam HCl 2 MG/2 ML VIAL ONE (12:41)
[2017-10-30] MEDS ORDERED: *HR* Succinylcholine 200 MG/10 ML VIAL IVP ONE (12:41)
[2017-10-30] MEDS ORDERED: Lidocaine -MPF 4% 5 ML AMPUL ONE (12:41)
[2017-10-30] MEDS ORDERED: *HR* Rocuronium Bromide 50 MG/5 ML VIAL ONE ×2 (13:07→15:04)
[2017-10-30] MEDS ORDERED: *HR* Magnesium Sulfate 1 GM/2 ML VIAL ONE (13:32)
[2017-10-30] MEDS ORDERED: CefOXitin 1,000 MG VIAL ONE (14:27)
[2017-10-30] MEDS ORDERED: Potassium Phosphate 44 MEQ in 0.9 % Sodium Chloride 250 ML IVPB ONE ×2 (14:41→18:30)
[2017-10-30] MEDS ORDERED: Neostigmine Methylsulfate 3 MG/3 ML SYRINGE ONE (15:22)
[2017-10-30] MEDS ORDERED: *HR* Morphine 10 MG/ML VIAL ONE (15:41)
[2017-10-30] MEDS ORDERED: MORPHINE SUL Oral CONC 10 MG/0.5 ML ORAL.SYG SL PRN (15:47)
[2017-10-30] MEDS ORDERED: Ondansetron 4 MG/2 ML VIAL IVP ONE (15:47)
[2017-10-30] MEDS ORDERED: *HR* HYDROmorphone 2 MG TABLET PO PRN (15:47)
[2017-10-30] MEDS ORDERED: *HR* OxyCODONE Immed Rel 5 MG TABLET PO PRN ×2 (15:47→17:26)
--- NOTE | 2017-10-30 15:52 | Operative Note ---
Date of procedure: 10/30/17 Pre-op diagnosis: Acute diverticulitis Post-op diagnosis: same Procedure: Sigmoid colectomy with primary handsewn anastomosis Anesthesia: JESSICA Surgeon: Collin Alexander Was there an shipping assistant present: No Estimated blood loss (cc): 200 Specimen: Sigmoid colon Condition: stable Disposition: PACU Procedure in Detail: After informed consent the patient is taking major operative suite placed supine position. The abdomen is prepped and draped in sterile fashion utilizing ChloraPrep standard draping techniques. Alvarez catheter was placed prior to prep. Timeout was taken patient was identified. Made a vertical midline incision from just above the umbilicus to the pubis. I am of the abdomen. She had adhesions from the small bowel to the base the pelvis at the area of previous hysterectomy. Adhesions were lysed. There were no enterotomies. The sigmoid colon was rock hard and pulled down into the pelvis by inflammatory response. I mobilized the entire sigmoid colon and the rectosigmoid. I divided the descending colon sigmoid colon junction with TA 60 and I divided the rectosigmoid junction with TA 60. The sigmoid colon mesentery was divided between clamps and hemostatic ligatures. Specimen was passed off field. The rectum was normal. The descending colon sigmoid junction was normal. I circumferentially dissected the soft tissue and fat away from the staple lines on both the proximal and distal staple. I was satisfied that there was no tension on the anastomosis. I performed a 2 layer handsewn anastomosis using 3-0 silk seromuscular stitches and 3-0 chromic mucosal stitch which was running locking on the back wall and baseball and front wall. The anterior wall seromuscular stitches were placed and this created a technically perfect anastomosis with no evidence of air or fluid leak. I irrigated with copious amounts of antibiotic containing solution. The midline was closed with looped 0 PDS and the skin with interrupted 2-0 Vicryl and skin clips. The patient tolerated the procedure very well. Sterile dressing was applied. I opened the specimen findings were consistent with recalcitrant acute diverticulitis. There was no evidence of abscess or pus.
[2017-10-30] MEDS: *HR* Labetalol 100 MG/20 ML MDV IVP PRN ×2 (16:32→16:58)
[2017-10-30] MEDS ORDERED: cefOXitin 1,000 MG, Sodium Chloride IRRigation 1,000 ML IR ONE (17:00)
[2017-10-30] MEDS ORDERED: Clinimix E 5%-15% SOLUTION 2,000 ML with MVI, adult with vitamin K 10 ML IVC SCH ×2 (17:00→18:00)
[2017-10-30] MEDS ORDERED: *HR* LORazepam 2 MG/ML VIAL IVP PRN (17:26)
[2017-10-30] MEDS ORDERED: 0.9 % Sodium Chloride 1,000 ML IVC SCH (17:26)
[2017-10-30] MEDS ORDERED: D10% in Water 500 ML IVC PRN (17:26)
[2017-10-30] MEDS ORDERED: Ipratropium/Albuterol Neb 3 ML IH PRN (17:26)
--- NOTE | 2017-10-30 17:35 | Anesthesia Evaluation Post Op ---
Date of Encounter: 10/30/17 Time of Encounter: 17:20 Notes: Patient's vital signs have been reviewed. Patient is stable postoperatively and has adequately recovered from anesthesia. Patient is determined to have stable airway patency and respiratory function including respiratory rate and oxygen saturation. Patient has a stable heart rate, blood pressure and adequate hydration. Patients mental status is acceptable. Patients temperature is appropriate. Pain and nausea are adequately controlled. - Discharge PostOp Status: Transfer Patient to floor
[2017-10-30] MEDS: D5% in 0.45% NACL w KCl 20 MEQ/1,000 ML MLS IVC SCH (18:17)
[2017-10-30] MEDS: Ondansetron 4 MG/2 ML VIAL IVP PRN (20:14)
[2017-10-30] MEDS ORDERED: *HR* Promethazine 25 MG/ML VIAL IVP ONE (22:16)
[2017-10-31] MEDS: Piperacillin/Tazobactam 3.375 GM in 0.9 % Sodium Chloride Mini Bag 100 ML IVPB SCH ×4 (00:10→23:45)
[2017-10-31] MEDS: Ipratropium/Albuterol Neb 3 ML IH SCH ×4 (04:00→21:04)
[2017-10-31] MEDS: D5% in 0.45% NACL w KCl 20 MEQ/1,000 ML MLS IVC SCH ×2 (04:32→15:37)
[2017-10-31 04:41] LABS: Basophils % 0.2 %; Eosinophils % 0.1 %; Hematocrit 38.5 % (35.3-44.9); Immature Granulocytes % 0.3 % (0-4); Lymphocytes # 0.8 K/mcL (0.6-4.6); Lymphocytes % 6.2 %; Mean Corpuscular HGB Conc 33.8 g/dL (31.6-35.5); Mean Corpuscular Hemoglobin 28.8 pg (28.0-33.3); Mean Corpuscular Volume 85.4 fL (83.0-100.0); Mean Platelet Volume 10.5 fL (9.4-12.4); Monocytes # 0.7 K/mcL (0.0-1.3); Monocytes % 5.5 %; Neutrophils # 10.7 K/mcL (1.6-8.9); Platelet Count 232 K/mcL (140-400); Red Blood Count 4.51 M/mcL (3.82-4.97); Red Cell Distribution Width 14.4 % (11.5-14.5); Segmented Neutrophils % 87.7 %
[2017-10-31] MEDS: *HR* Enoxaparin 40 MG/0.4 ML SYRINGE SQ SCH (05:10)
[2017-10-31 05:23] LABS: BUN/Creatinine Ratio 20 (6-26); Blood Urea Nitrogen 9 mg/dL (8-23); Calcium 8.3 mg/dL (8.6-10.3); Carbon Dioxide 27 mEq/L (23-29); Chloride 98 mEq/L (98-107); Glucose 215 mg/dL (70-105); Osmolality,Calculated 281 (280-300); Phosphorous 2.6 mg/dL (2.7-4.5); Potassium 3.4 mEq/L (3.5-5.1); Sodium 133 mEq/L (136-145); eGFR For African Americans > 60 (> 60); eGFR For Non-African Americans > 60 (> 60)
--- NOTE | 2017-10-31 06:29 | General Surgery Progress Note ---
<Nadeem Miller - Last Filed: 10/31/17 11:35> Date of Encounter: 10/31/17 Time of Encounter: 06:00 - Assessment and Plan (1) Status post partial colectomy Current Visit: Yes Status: Acute Status post Sigmoid colectomy with primary handsewn anastomosis. POD#1 Afebrile overnight. Pain is well controlled on oxycodone. No bowel movements yet. Patient denies passing gas yet. - Pathology pending. - Continue zosyn. - continue pain medications. - NPO - Continue TPN. - Continue IV fluids. (2) Acute diverticulitis Current Visit: Yes Status: Acute See plan above. (3) Hypokalemia Current Visit: Yes Status: Acute Potassium level at 3.4 (increased from 2.6 yesterday). - 20 meq K+ IV. (4) DVT prophylaxis Current Visit: Yes Status: Acute - Continue Lovenox 40 mg SQ. Subjective Narrative: Patient admits to minor diffuse abdominal pain. She admits to some nausea but denies any vomiting. She denies any chest pain or shortness of breath. Denies having any bowel movements or passing gas. Objective VITAL SIGNS: Reviewed. See [facility] GENERAL: In no apparent stress. HEENT: [Normocephalic, PER, EOMi, oropharynx pink/moist, no JVD noted.] CV: b/l rad pulses 2+, RRR, no murmurs or gallops, no JVD RESPIRATORY: CTAB without wheezes, rales, or rhonchi ABD: soft, mild tednerness to light palpation in LLQ, no rebound/guarding/ rigidity, no peritoneal signs. Hypoactive bowel sounds present. INCISION: clean, dry, intact without purulence/edema/rubor/calor. No active bleeding. EXTREMITY: grossly normal motor function, no pedal edema, peripheral pulses 2+ b /l NEUROLOGIC EXAM: AOx3, obeys commands, no speech deficits. PSYCHIATRIC: normal mood and affect SKIN: no rashes, or skin changes Vital Signs - Last 8 Hours Temp Pulse Resp BP Pulse Ox 10/31/17 03:59 97.5 F L 77 18 151/90 94 10/30/17 23:41 98.3 F 78 17 153/93 94 Intake and Output 10/30/17 10/30/17 10/31/17 15:59 23:59 07:59 Intake Total 400 / 400 0 / 0 1410 / 1410 Output Total 200 / 200 1550 / 1550 750 / 750 Balance 200 / 200 -1550 / -1550 660 / 660 Intake: IV Fluids 400 / 400 1410 / 1410 KCl 20mEq IN D5%-0.45 NACL 20 1000 / 1000 meq In 1,000 ml @ 100 mls/hr IVC .Q10H REPLACED BY [facility] Rx#:[id number] Magnesium Sulfate Premix 2gm/ 50 / 50 50mL 2 gm In 50 ml @ 50 mls/hr IVPB ONCE ONE Rx#:[id number] Zosyn 3.375 GM In 0.9 % Sodium 100 / 100 100 / 100 Chloride (Mini-Bag +) 100 ML @ 25 mls/hr IVPB Q8HR REPLACED BY [facility] Rx#: [id number] Potassium Chloride 10 mEq/100mL 300 / 300 10 meq In 100 ml @ 100 mls/hr IVPB Q1H REPLACED BY [facility] Rx#:[id number] Potassium Phosphate 44 MEQ In 0 260 / 260 .9 % Sodium Chloride 250 ML @ 40 mls/hr IVPB ONCE ONE Rx#: [id number] Oral 0 / 0 0 / 0 0 / 0 Output: Urine 0 / 0 0 / 0 Estimated Blood Loss 200 / 200 Catheter 1550 / 1550 750 / 750 Other: Meal NPO NPO DINNER Percent of Meal Consumed 0% Weight 93.88 kg Blood Glucose* 132 264 226 Patient Weight 10/31/17 23:59 Weight 93.88 kg - Labs 10/31/17 04:00 10/31/17 04:00 Diabetes panel 10/31/17 Range/Units 04:00 Sodium 133 L D (136-145) mEq/L Potassium 3.4 L D (3.5-5.1) mEq/L Chloride 98 (98-107) mEq/L Carbon Dioxide 27 (23-29) mEq/L BUN 9 (8-23) mg/dL Creatinine 0.46 L (0.60-1.20) mg/dL Glucose 215 H (70-105) mg/dL Calcium 8.3 L (8.6-10.3) mg/dL Calcium panel 10/31/17 Range/Units 04:00 Calcium 8.3 L (8.6-10.3) mg/dL Phosphorus 2.6 L (2.7-4.5) mg/dL Pituitary panel 10/31/17 Range/Units 04:00 Sodium 133 L D (136-145) mEq/L Potassium 3.4 L D (3.5-5.1) mEq/L Chloride 98 (98-107) mEq/L Carbon Dioxide 27 (23-29) mEq/L BUN 9 (8-23) mg/dL Creatinine 0.46 L (0.60-1.20) mg/dL Glucose 215 H (70-105) mg/dL Calcium 8.3 L (8.6-10.3) mg/dL Adrenal panel 10/31/17 Range/Units 04:00 Sodium 133 L D (136-145) mEq/L Potassium 3.4 L D (3.5-5.1) mEq/L Chloride 98 (98-107) mEq/L Carbon Dioxide 27 (23-29) mEq/L BUN 9 (8-23) mg/dL Creatinine 0.46 L (0.60-1.20) mg/dL Glucose 215 H (70-105) mg/dL Calcium 8.3 L (8.6-10.3) mg/dL - VTE Documentation of Mechanical Device: Intermittent pneumatic compression device Consult Discharge Plan - Plan Referrals: Mary Jo Dawkins, SAM [Primary Care Provider] - <Collin Alexander - Last Filed: 10/31/17 17:41> Date of Encounter: 10/31/17 Objective Vital Signs - Last 8 Hours Temp Pulse Resp BP Pulse Ox 10/31/17 15:52 98.5 F 125 20 124/83 98 10/31/17 15:41 16 95 10/31/17 11:35 98.7 F 85 16 151/92 95 10/31/17 10:37 16 95 Intake and Output 10/31/17 10/31/17 10/31/17 07:59 15:59 23:59 Intake Total 1660 / 1660 1100 / 1100 100 / 100 Output Total 750 / 750 1850 / 1850 Balance 910 / 910 -750 / -750 100 / 100 Intake: IV Fluids 1660 / 1660 1100 / 1100 100 / 100 KCl 20mEq IN D5%-0.45 NACL 20 1000 / 1000 1000 / 1000 meq In 1,000 ml @ 100 mls/hr IVC .Q10H [facility] Rx#:[id number] Intralipid 20% 250 ML @ 21 mls/ 250 / 250 hr IVPB DAILY@1700 REPLACED BY [facility] Rx#: [id number] Magnesium Sulfate Premix 2gm/ 50 / 50 50mL 2 gm In 50 ml @ 50 mls/hr IVPB ONCE ONE Rx#:[id number] Zosyn 3.375 GM In 0.9 % Sodium 100 / 100 100 / 100 Chloride (Mini-Bag +) 100 ML @ 25 mls/hr IVPB Q8HR [facility] Rx#: [id number] Potassium Chloride 10 mEq/100mL 100 / 100 10 meq In 100 ml @ 100 mls/hr IVPB Q1H [facility] Rx#:[id number] Potassium Phosphate 44 MEQ In 0 260 / 260 .9 % Sodium Chloride 250 ML @ 40 mls/hr IVPB ONCE ONE Rx#: [id number] Oral 0 / 0 Output: Catheter 750 / 750 1850 / 1850 Other: Meal NPO LUNCH Weight 93.88 kg Blood Glucose* 158 126 112 Patient Weight 10/31/17 23:59 Weight 93.88 kg - Labs 10/31/17 04:00 10/31/17 04:00 Diabetes panel 10/31/17 Range/Units 04:00 Sodium 133 L D (136-145) mEq/L Potassium 3.4 L D (3.5-5.1) mEq/L Chloride 98 (98-107) mEq/L Carbon Dioxide 27 (23-29) mEq/L BUN 9 (8-23) mg/dL Creatinine 0.46 L (0.60-1.20) mg/dL Glucose 215 H (70-105) mg/dL Calcium 8.3 L (8.6-10.3) mg/dL Calcium panel 10/31/17 Range/Units 04:00 Calcium 8.3 L (8.6-10.3) mg/dL Phosphorus 2.6 L (2.7-4.5) mg/dL Pituitary panel 10/31/17 Range/Units 04:00 Sodium 133 L D (136-145) mEq/L Potassium 3.4 L D (3.5-5.1) mEq/L Chloride 98 (98-107) mEq/L Carbon Dioxide 27 (23-29) mEq/L BUN 9 (8-23) mg/dL Creatinine 0.46 L (0.60-1.20) mg/dL Glucose 215 H (70-105) mg/dL Calcium 8.3 L (8.6-10.3) mg/dL Adrenal panel 10/31/17 Range/Units 04:00 Sodium 133 L D (136-145) mEq/L Potassium 3.4 L D (3.5-5.1) mEq/L Chloride 98 (98-107) mEq/L Carbon Dioxide 27 (23-29) mEq/L BUN 9 (8-23) mg/dL Creatinine 0.46 L (0.60-1.20) mg/dL Glucose 215 H (70-105) mg/dL Calcium 8.3 L (8.6-10.3) mg/dL - Attending Attestation I examined this patient and my medical decision-making was reviewed with the Resident Physician. I agree with the documented findings, disposition and treatment plan as described except to the extent set forth below. The patient is seen and evaluated on morning rounds. Pain control is good. No bowel sounds are flatus yet. Continue supportive care. Advance diet when bowel function returned Heladio Alexander MD FACS
[2017-10-31] MEDS: Pantoprazole 40 MG VIAL IVP SCH (09:24)
[2017-10-31] MEDS: Ondansetron 4 MG/2 ML VIAL IVP PRN (09:37)
[2017-10-31] MEDS ORDERED: Dextrose Gel 15 GM/37.5 ML TUBE PO PRN ×2 (13:29)
[2017-10-31] MEDS ORDERED: D5% in Water 1,000 ML IVC PRN (13:29)
[2017-10-31] MEDS ORDERED: *HR* Dextrose 50 % in Water (Syg) 50 ML SYRINGE IVP PRN (13:29)
[2017-10-31] MEDS ORDERED: Clinimix E 5%-15% SOLUTION 2,000 ML with MVI, adult with vitamin K 10 ML IVC SCH (17:00)
[2017-10-31] MEDS: Insulin LISPRO 300 UNITS/3 ML VIAL SQ SCH (17:17)
[2017-10-31] MEDS: *HR* Morphine 30 MG/ 30 ML PCA IVC PRN (19:47)
[2017-11-01] MEDS: Insulin LISPRO 300 UNITS/3 ML VIAL SQ SCH ×5 (00:01→23:36)
[2017-11-01] MEDS: D5% in 0.45% NACL w KCl 20 MEQ/1,000 ML MLS IVC SCH ×2 (01:53→15:00)
[2017-11-01] MEDS: Ipratropium/Albuterol Neb 3 ML IH SCH ×4 (04:00→22:53)
[2017-11-01 06:23] LABS: BUN/Creatinine Ratio 35 (6-26); Blood Urea Nitrogen 15 mg/dL (8-23); Calcium 8.2 mg/dL (8.6-10.3); Carbon Dioxide 27 mEq/L (23-29); Chloride 105 mEq/L (98-107); Glucose 117 mg/dL (70-105); Magnesium 1.9 mg/dL (1.6-2.6); Osmolality,Calculated 290 (280-300); Phosphorous 3.6 mg/dL (2.7-4.5); Potassium 3.5 mEq/L (3.5-5.1); Sodium 139 mEq/L (136-145); eGFR For African Americans > 60 (> 60); eGFR For Non-African Americans > 60 (> 60)
[2017-11-01 06:25] LABS: Basophils % 0.3 %; Eosinophils # 0.4 K/mcL (0.0-0.6); Hematocrit 35.3 % (35.3-44.9); Hemoglobin 11.5 g/dL (11.5-15.4); Immature Granulocytes % 0.8 % (0-4); Immature Platelets 4.3 % (1.1-6.1); Lymphocytes # 1.7 K/mcL (0.6-4.6); Lymphocytes % 15.7 %; Mean Corpuscular HGB Conc 32.6 g/dL (31.6-35.5); Mean Corpuscular Hemoglobin 28.7 pg (28.0-33.3); Mean Platelet Volume 10.6 fL (9.4-12.4); Monocytes # 0.9 K/mcL (0.0-1.3); Monocytes % 8.2 %; Neutrophils # 7.8 K/mcL (1.6-8.9); Nucleated Red Blood Cells 0.3 /100 WBC (0); Platelet Count 218 K/mcL (140-400); Red Blood Count 4.01 M/mcL (3.82-4.97); Red Cell Distribution Width 14.7 % (11.5-14.5)
--- NOTE | 2017-11-01 06:35 | General Surgery Progress Note ---
<Nadeem Miller - Last Filed: 11/01/17 14:53> Date of Encounter: 11/01/17 Time of Encounter: 06:15 - Assessment and Plan (1) Status post partial colectomy Current Visit: Yes Status: Acute Status post Sigmoid colectomy with primary handsewn anastomosis. POD#2. WBC dropperd from 12.2 to 11. Afebrile overnight. Pain is well controlled on oxycodone. No bowel movements yet. Patient denies passing gas yet. - Pathology pending. - Continue zosyn. - continue pain medications. - Volume restricted clear liquid diet 300 cc per 8 hrs. - Continue TPN. - IV maintenance fluids reduced from 100 to 50 ml/hr. - Good urine output. Patient has creatinine of 0.43. Alvarez catheter taken out. (2) Acute diverticulitis Current Visit: Yes Status: Acute See plan above. (3) Hypokalemia Current Visit: Yes Status: Resolved Resolved. Today at 3.5. (4) DVT prophylaxis Current Visit: Yes Status: Acute - Continue Lovenox 40 mg SQ. Subjective Narrative: Patient says she still admits to some nausea but denies any vomiting. She says her abdominal pain is still the same rating it a 5 out of 5 most prominent in the left lower quadrant. She denies any bowel movements. Denies passing gas. Denies any chest pain or shortness of breath. Objective VITAL SIGNS: Reviewed. See [facility] GENERAL: No apparent distress. HEENT: [Normocephalic, PER, EOMi, oropharynx pink/moist, no JVD noted.] CV: b/l rad pulses 2+, RRR, no murmurs or gallops, no JVD RESPIRATORY: CTAB without wheezes, rales, or rhonchi ABD: soft, moderate tenderness (more since yesterday) to palpation in LLQ and RLQ, no rebound/guarding/rigidity, no peritoneal signs. Hypoactive bowel sounds present. INCISION: clean, dry, intact without purulence/bleeding/edema/rubor/calor EXTREMITY: grossly normal motor function, no pedal edema, peripheral pulses 2+ b /l NEUROLOGIC EXAM: AOx3, obeys commands, no speech deficits. PSYCHIATRIC: normal mood and affect SKIN: no gross lesions, rashes, or skin changes Vital Signs - Last 8 Hours Temp Pulse Resp BP Pulse Ox 11/01/17 06:28 98.6 F 68 14 125/77 92 11/01/17 05:51 15 92 11/01/17 03:43 97.9 F 52 15 121/70 92 10/31/17 23:47 98.1 F 86 15 121/77 93 Intake and Output 10/31/17 10/31/17 11/01/17 15:59 23:59 07:59 Intake Total 1100 / 1100 200 / 200 900 / 900 Output Total 1850 / 1850 525 / 525 Balance -750 / -750 -325 / -325 900 / 900 Intake: IV Fluids 1100 / 1100 200 / 200 900 / 900 KCl 20mEq IN D5%-0.45 NACL 20 1000 / 1000 900 / 900 meq In 1,000 ml @ 100 mls/hr IVC .Q10H [facility] Rx#:[id number] Zosyn 3.375 GM In 0.9 % Sodium 200 / 200 Chloride (Mini-Bag +) 100 ML @ 25 mls/hr IVPB Q8HR [facility] Rx#: [id number] Potassium Chloride 10 mEq/100mL 100 / 100 10 meq In 100 ml @ 100 mls/hr IVPB Q1H [facility] Rx#:[id number] Oral 0 / 0 Output: Urine 0 / 0 Catheter 1850 / 1850 525 / 525 Other: Meal NPO LUNCH Blood Glucose* 126 108 129 - Labs 11/01/17 04:10 11/01/17 04:10 Diabetes panel 11/01/17 Range/Units 04:10 Sodium 139 (136-145) mEq/L Potassium 3.5 (3.5-5.1) mEq/L Chloride 105 (98-107) mEq/L Carbon Dioxide 27 (23-29) mEq/L BUN 15 (8-23) mg/dL Creatinine 0.43 L (0.60-1.20) mg/dL Glucose 117 H (70-105) mg/dL Calcium 8.2 L (8.6-10.3) mg/dL Calcium panel 11/01/17 Range/Units 04:10 Calcium 8.2 L (8.6-10.3) mg/dL Phosphorus 3.6 (2.7-4.5) mg/dL Pituitary panel 11/01/17 Range/Units 04:10 Sodium 139 (136-145) mEq/L Potassium 3.5 (3.5-5.1) mEq/L Chloride 105 (98-107) mEq/L Carbon Dioxide 27 (23-29) mEq/L BUN 15 (8-23) mg/dL Creatinine 0.43 L (0.60-1.20) mg/dL Glucose 117 H (70-105) mg/dL Calcium 8.2 L (8.6-10.3) mg/dL Adrenal panel 11/01/17 Range/Units 04:10 Sodium 139 (136-145) mEq/L Potassium 3.5 (3.5-5.1) mEq/L Chloride 105 (98-107) mEq/L Carbon Dioxide 27 (23-29) mEq/L BUN 15 (8-23) mg/dL Creatinine 0.43 L (0.60-1.20) mg/dL Glucose 117 H (70-105) mg/dL Calcium 8.2 L (8.6-10.3) mg/dL - VTE Documentation of Mechanical Device: Intermittent pneumatic compression device Consult Discharge Plan - Plan Referrals: Mary Jo Dawkins, HOME VISITS NURSE [Primary Care Provider] - <Collin Alexander - Last Filed: 11/02/17 11:50> Date of Encounter: 11/01/17 Objective Vital Signs - Last 8 Hours Temp Pulse Resp BP Pulse Ox 11/02/17 11:22 97.7 F 84 15 111/75 93 11/02/17 07:19 98.2 F 85 18 133/84 94 Intake and Output 11/01/17 11/02/17 11/02/17 23:59 07:59 15:59 Intake Total 100 / 100 0 / 0 1100 / 1100 Output Total 0 / 0 450 / 450 100 / 100 Balance 100 / 100 -450 / -450 1000 / 1000 Intake: IV Fluids 100 / 100 1100 / 1100 KCl 20mEq IN D5%-0.45 NACL 20 1000 / 1000 meq In 1,000 ml @ 50 mls/hr IVC .Q20H [facility] Rx#:[id number] Zosyn 3.375 GM In 0.9 % Sodium 100 / 100 Chloride (Mini-Bag +) 100 ML @ 25 mls/hr IVPB Q8HR [facility] Rx#: [id number] Potassium Chloride 10 mEq/100mL 100 / 100 10 meq In 100 ml @ 100 mls/hr IVPB Q1H [facility] Rx#:[id number] Oral 0 / 0 0 / 0 Output: Urine 0 / 0 450 / 450 100 / 100 Other: Meal Dinner Percent of Meal Consumed 0% # Voids 1 1 # Bowel Movements 0 0 Weight 90.775 kg Blood Glucose* 119 122 131 Patient Weight 11/02/17 23:59 Weight 90.775 kg - Labs 11/02/17 04:00 11/02/17 04:00 Diabetes panel 11/02/17 Range/Units 04:00 Sodium 136 (136-145) mEq/L Potassium 3.4 L (3.5-5.1) mEq/L Chloride 102 (98-107) mEq/L Carbon Dioxide 28 (23-29) mEq/L BUN 18 (8-23) mg/dL Creatinine 0.47 L (0.60-1.20) mg/dL Glucose 121 H (70-105) mg/dL Calcium 8.4 L (8.6-10.3) mg/dL Calcium panel 11/02/17 Range/Units 04:00 Calcium 8.4 L (8.6-10.3) mg/dL Phosphorus 3.1 (2.7-4.5) mg/dL Pituitary panel 11/02/17 Range/Units 04:00 Sodium 136 (136-145) mEq/L Potassium 3.4 L (3.5-5.1) mEq/L Chloride 102 (98-107) mEq/L Carbon Dioxide 28 (23-29) mEq/L BUN 18 (8-23) mg/dL Creatinine 0.47 L (0.60-1.20) mg/dL Glucose 121 H (70-105) mg/dL Calcium 8.4 L (8.6-10.3) mg/dL Adrenal panel 11/02/17 Range/Units 04:00 Sodium 136 (136-145) mEq/L Potassium 3.4 L (3.5-5.1) mEq/L Chloride 102 (98-107) mEq/L Carbon Dioxide 28 (23-29) mEq/L BUN 18 (8-23) mg/dL Creatinine 0.47 L (0.60-1.20) mg/dL Glucose 121 H (70-105) mg/dL Calcium 8.4 L (8.6-10.3) mg/dL - Attending Attestation I examined this patient and my medical decision-making was reviewed with the Resident Physician. I agree with the documented findings, disposition and treatment plan as described except to the extent set forth below. The patient is seen and evaluated on morning rounds with resident. She is progressing normally. We can start volume restricted clear liquids. We will plan to advance her diet as she develops bowel activity. Collin Alexander MD FACS
[2017-11-01] MEDS: *HR* Enoxaparin 40 MG/0.4 ML SYRINGE SQ SCH (06:43)
[2017-11-01] MEDS: Pantoprazole 40 MG VIAL IVP SCH (09:14)
[2017-11-01] MEDS: Piperacillin/Tazobactam 3.375 GM in 0.9 % Sodium Chloride Mini Bag 100 ML IVPB SCH ×3 (09:14→23:42)
[2017-11-01 11:32] LABS: VBG Ionized Calcium 1.06 mmol/L (1.15-1.35)
[2017-11-01] MEDS ORDERED: Clinimix E 5%-15% SOLUTION 2,000 ML with MVI, adult with vitamin K 10 ML IVC SCH (17:00)
[2017-11-01] MEDS: *HR* Morphine 30 MG/ 30 ML PCA IVC PRN (21:06)
[2017-11-02] MEDS: Ipratropium/Albuterol Neb 3 ML IH SCH ×4 (04:29→23:15)
[2017-11-02 05:28] LABS: Basophils % 0.3 %; Eosinophils # 0.6 K/mcL (0.0-0.6); Eosinophils % 5.8 %; Hematocrit 31.7 % (35.3-44.9); Immature Granulocytes % 0.4 % (0-4); Lymphocytes # 1.9 K/mcL (0.6-4.6); Lymphocytes % 17.8 %; Mean Corpuscular HGB Conc 32.5 g/dL (31.6-35.5); Mean Corpuscular Hemoglobin 28.2 pg (28.0-33.3); Mean Corpuscular Volume 86.8 fL (83.0-100.0); Mean Platelet Volume 10.9 fL (9.4-12.4); Monocytes # 0.9 K/mcL (0.0-1.3); Monocytes % 8.3 %; Neutrophils # 7.1 K/mcL (1.6-8.9); Platelet Count 185 K/mcL (140-400); Red Blood Count 3.65 M/mcL (3.82-4.97); Red Cell Distribution Width 14.6 % (11.5-14.5); Segmented Neutrophils % 67.4 %
[2017-11-02] MEDS: Insulin LISPRO 300 UNITS/3 ML VIAL SQ SCH ×4 (05:28→23:47)
[2017-11-02 05:29] LABS: Hemoglobin 10.3 g/dL (11.5-15.4)
[2017-11-02] MEDS: *HR* Enoxaparin 40 MG/0.4 ML SYRINGE SQ SCH (05:31)
[2017-11-02 05:45] LABS: BUN/Creatinine Ratio 38 (6-26); Blood Urea Nitrogen 18 mg/dL (8-23); Calcium 8.4 mg/dL (8.6-10.3); Carbon Dioxide 28 mEq/L (23-29); Chloride 102 mEq/L (98-107); Glucose 121 mg/dL (70-105); Magnesium 1.8 mg/dL (1.6-2.6); Osmolality,Calculated 285 (280-300); Phosphorous 3.1 mg/dL (2.7-4.5); Potassium 3.4 mEq/L (3.5-5.1); Sodium 136 mEq/L (136-145); eGFR For African Americans > 60 (> 60); eGFR For Non-African Americans > 60 (> 60)
--- NOTE | 2017-11-02 06:21 | General Surgery Progress Note ---
<AliyahtigistNadeem rowell - Last Filed: 11/02/17 12:31> Date of Encounter: 11/02/17 Time of Encounter: 06:15 - Assessment and Plan (1) Status post partial colectomy Current Visit: Yes Status: Acute Status post Sigmoid colectomy with primary handsewn anastomosis. POD#3. WBC dropperd from 11 to 10.6. Afebrile overnight. Pain is well controlled on oxycodone. No bowel movements yet. Patient denies passing gas yet. - Pathology pending. - Discontinue zosyn. - continue pain medications. - Advance to clear liquid diet - Continue TPN. - Decreased IV maintenance fluids from 50 to 20 mls/hr. - Urine output 250 ml. Patient has creatinine of 0.47. - Await bowel function to return. (2) Acute diverticulitis Current Visit: Yes Status: Acute See plan above. (3) Hypokalemia Current Visit: Yes Status: Acute Potassium at 3.4. - 20 meq IV potassium (4) DVT prophylaxis Current Visit: Yes Status: Acute - Continue Lovenox 40 mg SQ. Subjective Narrative: Patient says her abdominal pain has improved since yesterday. She denies any bowel movement or passing gas. She says her nausea has considerably improved since yesterday. Denies any vomiting. Denies any chest pain or shortness of breath. Patient able to tolerate clear liquids. Objective VITAL SIGNS: Reviewed. See [facility] GENERAL: no apprent distress HEENT: [Normocephalic, PER, EOMi, oropharynx pink/moist, no JVD noted.] CV: b/l rad pulses 2+, RRR, no murmurs or gallops, no JVD RESPIRATORY: CTAB without wheezes, rales, or rhonchi ABD: soft, minor diffuse tenderness to deep palpation , no rebound/guarding/ rigidity, no peritoneal signs INCISION: abdominal incision clean, dry, intact without purulence/bleeding/edema /rubor/calor EXTREMITY: grossly normal motor function, no pedal edema, peripheral pulses 2+ b /l NEUROLOGIC EXAM: AOx3, obeys commands, no speech deficits. PSYCHIATRIC: normal mood and affect SKIN: no gross lesions, rashes, or skin changes Vital Signs - Last 8 Hours Temp Pulse Resp BP Pulse Ox 11/02/17 02:55 98.5 F 81 15 119/75 94 11/01/17 23:22 98.4 F 84 15 103/69 93 11/01/17 22:53 18 97 Intake and Output 11/01/17 11/01/17 11/02/17 15:59 23:59 07:59 Intake Total 350 / 350 100 / 100 0 / 0 Output Total 1000 / 1000 0 / 0 250 / 250 Balance -650 / -650 100 / 100 -250 / -250 Intake: IV Fluids 100 / 100 100 / 100 Zosyn 3.375 GM In 0.9 % Sodium 100 / 100 100 / 100 Chloride (Mini-Bag +) 100 ML @ 25 mls/hr IVPB Q8HR [facility] Rx#: [id number] Oral 250 / 250 0 / 0 0 / 0 Output: Urine 0 / 0 250 / 250 Catheter 1000 / 1000 Other: Meal NPO Dinner Percent of Meal Consumed 0% # Voids 1 1 Blood Glucose* 118 119 122 - Labs 11/02/17 04:00 11/02/17 04:00 Diabetes panel 11/01/17 11/02/17 Range/Units 04:10 04:00 Sodium 139 136 (136-145) mEq/L Potassium 3.5 3.4 L (3.5-5.1) mEq/L Chloride 105 102 (98-107) mEq/L Carbon Dioxide 27 28 (23-29) mEq/L BUN 15 18 (8-23) mg/dL Creatinine 0.43 L 0.47 L (0.60-1.20) mg/dL Glucose 117 H 121 H (70-105) mg/dL Calcium 8.2 L 8.4 L (8.6-10.3) mg/dL Calcium panel 11/01/17 11/02/17 Range/Units 04:10 04:00 Calcium 8.2 L 8.4 L (8.6-10.3) mg/dL Phosphorus 3.6 3.1 (2.7-4.5) mg/dL Pituitary panel 11/01/17 11/02/17 Range/Units 04:10 04:00 Sodium 139 136 (136-145) mEq/L Potassium 3.5 3.4 L (3.5-5.1) mEq/L Chloride 105 102 (98-107) mEq/L Carbon Dioxide 27 28 (23-29) mEq/L BUN 15 18 (8-23) mg/dL Creatinine 0.43 L 0.47 L (0.60-1.20) mg/dL Glucose 117 H 121 H (70-105) mg/dL Calcium 8.2 L 8.4 L (8.6-10.3) mg/dL Adrenal panel 11/01/17 11/02/17 Range/Units 04:10 04:00 Sodium 139 136 (136-145) mEq/L Potassium 3.5 3.4 L (3.5-5.1) mEq/L Chloride 105 102 (98-107) mEq/L Carbon Dioxide 27 28 (23-29) mEq/L BUN 15 18 (8-23) mg/dL Creatinine 0.43 L 0.47 L (0.60-1.20) mg/dL Glucose 117 H 121 H (70-105) mg/dL Calcium 8.2 L 8.4 L (8.6-10.3) mg/dL - VTE Documentation of Mechanical Device: Intermittent pneumatic compression device Consult Discharge Plan - Plan Referrals: Mary Jo Dawkins CNP [Primary Care Provider] - <Collin Alexander - Last Filed: 11/05/17 08:49> Date of Encounter: 11/05/17 Objective Vital Signs - Last 8 Hours Temp Pulse Resp BP Pulse Ox 11/05/17 07:00 97.8 F 84 16 116/78 94 11/05/17 03:29 98.1 F 78 15 137/83 97 Intake and Output 11/04/17 11/05/17 11/05/17 23:59 07:59 15:59 Intake Total 310 / 310 1100 / 1100 Output Total 1400 / 1400 300 / 300 Balance -1090 / -1090 800 / 800 Intake: IV Fluids 250 / 250 1000 / 1000 KCl 20mEq IN D5%-0.45 NACL 20 1000 / 1000 meq In 1,000 ml @ 50 mls/hr IVC .Q20H [facility] Rx#:[id number] Intralipid 20% 250 ML @ 21 mls/ 250 / 250 hr IVPB DAILY@1700 [facility] Rx#: [id number] Oral 60 / 60 100 / 100 Output: Urine 1400 / 1400 300 / 300 Other: Meal Dinner Percent of Meal Consumed 25% # Bowel Movements 0 Weight 91.4 kg Blood Glucose* 109 Patient Weight 11/05/17 23:59 Weight 91.4 kg - Labs 11/05/17 03:40 11/05/17 03:40 Diabetes panel 11/05/17 Range/Units 03:40 Sodium 137 (136-145) mEq/L Potassium 4.1 (3.5-5.1) mEq/L Chloride 103 (98-107) mEq/L Carbon Dioxide 28 (23-29) mEq/L BUN 16 (8-23) mg/dL Creatinine 0.41 L (0.60-1.20) mg/dL Glucose 100 (70-105) mg/dL Calcium 8.8 (8.6-10.3) mg/dL Triglycerides 90 (< 150) mg/dL Calcium panel 11/05/17 Range/Units 03:40 Calcium 8.8 (8.6-10.3) mg/dL Phosphorus 4.3 (2.7-4.5) mg/dL Pituitary panel 11/05/17 Range/Units 03:40 Sodium 137 (136-145) mEq/L Potassium 4.1 (3.5-5.1) mEq/L Chloride 103 (98-107) mEq/L Carbon Dioxide 28 (23-29) mEq/L BUN 16 (8-23) mg/dL Creatinine 0.41 L (0.60-1.20) mg/dL Glucose 100 (70-105) mg/dL Calcium 8.8 (8.6-10.3) mg/dL Adrenal panel 11/05/17 Range/Units 03:40 Sodium 137 (136-145) mEq/L Potassium 4.1 (3.5-5.1) mEq/L Chloride 103 (98-107) mEq/L Carbon Dioxide 28 (23-29) mEq/L BUN 16 (8-23) mg/dL Creatinine 0.41 L (0.60-1.20) mg/dL Glucose 100 (70-105) mg/dL Calcium 8.8 (8.6-10.3) mg/dL - Attending Attestation I examined this patient and my medical decision-making was reviewed with the Resident Physician. I agree with the documented findings, disposition and treatment plan as described except to the extent set forth below. The patient is seen and evaluated on morning rounds with resident. Patient is doing quite well but we are awaiting bowel function. She can advance diet over the weekend and be discharged when she has bowel movements. Collin Alexander MD FACS
[2017-11-02] MEDS: D5% in 0.45% NACL w KCl 20 MEQ/1,000 ML MLS IVC SCH (09:26)
[2017-11-02] MEDS: Pantoprazole 40 MG VIAL IVP SCH (09:27)
[2017-11-02] MEDS ORDERED: D10% in Water 500 ML IVC PRN (12:25)
[2017-11-02] MEDS ORDERED: Clinimix E 5%-15% SOLUTION 2,000 ML with MVI, adult with vitamin K 10 ML IVC SCH (17:00)
[2017-11-02] MEDS: *HR* Morphine 30 MG/ 30 ML PCA IVC PRN (21:49)
[2017-11-03] MEDS: Ipratropium/Albuterol Neb 3 ML IH SCH ×4 (04:00→22:12)
[2017-11-03 04:38] LABS: BUN/Creatinine Ratio 38 (6-26); Blood Urea Nitrogen 14 mg/dL (8-23); Calcium 8.5 mg/dL (8.6-10.3); Carbon Dioxide 26 mEq/L (23-29); Chloride 104 mEq/L (98-107); Glucose 134 mg/dL (70-105); Magnesium 1.9 mg/dL (1.6-2.6); Osmolality,Calculated 282 (280-300); Phosphorous 3.4 mg/dL (2.7-4.5); Potassium 3.4 mEq/L (3.5-5.1); Sodium 135 mEq/L (136-145); eGFR For African Americans > 60 (> 60); eGFR For Non-African Americans > 60 (> 60)
[2017-11-03] MEDS: Insulin LISPRO 300 UNITS/3 ML VIAL SQ SCH ×4 (05:32→23:52)
[2017-11-03] MEDS: *HR* Enoxaparin 40 MG/0.4 ML SYRINGE SQ SCH (05:33)
[2017-11-03] MEDS: D5% in 0.45% NACL w KCl 20 MEQ/1,000 ML MLS IVC SCH (05:35)
[2017-11-03] MEDS: Pantoprazole 40 MG VIAL IVP SCH (08:37)
--- NOTE | 2017-11-03 16:37 | General Surgery Progress Note ---
Date of Encounter: 11/03/17 Time of Encounter: 12:00 - Assessment and Plan (1) Status post partial colectomy Current Visit: Yes Status: Acute Acute diverticulitis with evidence of inflammation in the perirectal region on CT repeated on 10/29/2017. S/P open sigmoid colectomy with anastomosis. Did have prior admission for another acute flare of diverticulitis in early September 2017 which was uncomplicated; treated with 10 days of Cipro/Flagyl. Pain never fully resolved. Abdominal CT done 10/23/2017 demonstrated sigmoid diverticulitis without perforation/abscess/obstruction. Readmitted to the hospital on 10/24/2017. Conservative measures with bowel rest and Zosyn failed to improve patient's symptoms, prompting above-stated surgery. Pathology report back supportive of chronic inflammation of diverticulitis. Zosyn was discontinued yesterday. Patient started on cleared liquid diet which she does not enjoy. Has been on TPN. 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 No BM/flatus yet. No bloating or distention. No N/V. Afebrile. On clears and TPN. Objective Vital Signs - Last 8 Hours Temp Pulse Resp BP Pulse Ox 11/03/17 15:19 16 94 11/03/17 11:28 97.8 F 86 16 135/83 94 11/03/17 10:08 16 93 Intake and Output 11/03/17 11/03/17 11/03/17 07:59 15:59 23:59 Intake Total 1250 / 1250 480 / 480 Output Total 1000 / 1000 1050 / 1050 Balance 250 / 250 -570 / -570 Intake: IV Fluids 1250 / 1250 KCl 20mEq IN D5%-0.45 NACL 20 1000 / 1000 meq In 1,000 ml @ 50 mls/hr IVC .Q20H [facility] Rx#:[id number] Intralipid 20% 250 ML @ 21 mls/ 250 / 250 hr IVPB DAILY@1700 [facility] Rx#: [id number] Oral 0 / 0 480 / 480 Output: Urine 1000 / 1000 1050 / 1050 Other: Meal Clear # Bowel Movements 0 0 Weight 91.5 kg Blood Glucose* 136 132 174 Patient Weight 11/03/17 23:59 Weight 91.5 kg VITAL SIGNS: Reviewed. See [facility] GENERAL: alert and comfortably supine in bed, answers questions appropriately, NAD HEENT: [Normocephalic, oropharynx moist CV: RRR RESPIRATORY: CTAB ABD: soft, mild post-op tenderness, no distention/rigidity/guarding, no peritoneal signs INCISION: clean, dry, intact without purulence/bleeding/edema/rubor/calor EXTREMITY: grossly normal motor function, no pedal edema, peripheral pulses 2+ b /l NEUROLOGIC EXAM: AOx3, obeys commands, no speech deficits. PSYCHIATRIC: normal mood and affect SKIN: no gross lesions, rashes, or skin changes - Labs 11/02/17 04:00 11/03/17 04:00 Diabetes panel 11/03/17 Range/Units 04:00 Sodium 135 L (136-145) mEq/L Potassium 3.4 L (3.5-5.1) mEq/L Chloride 104 (98-107) mEq/L Carbon Dioxide 26 (23-29) mEq/L BUN 14 (8-23) mg/dL Creatinine 0.37 L (0.60-1.20) mg/dL Glucose 134 H (70-105) mg/dL Calcium 8.5 L (8.6-10.3) mg/dL Calcium panel 11/03/17 Range/Units 04:00 Calcium 8.5 L (8.6-10.3) mg/dL Phosphorus 3.4 (2.7-4.5) mg/dL Pituitary panel 11/03/17 Range/Units 04:00 Sodium 135 L (136-145) mEq/L Potassium 3.4 L (3.5-5.1) mEq/L Chloride 104 (98-107) mEq/L Carbon Dioxide 26 (23-29) mEq/L BUN 14 (8-23) mg/dL Creatinine 0.37 L (0.60-1.20) mg/dL Glucose 134 H (70-105) mg/dL Calcium 8.5 L (8.6-10.3) mg/dL Adrenal panel 11/03/17 Range/Units 04:00 Sodium 135 L (136-145) mEq/L Potassium 3.4 L (3.5-5.1) mEq/L Chloride 104 (98-107) mEq/L Carbon Dioxide 26 (23-29) mEq/L BUN 14 (8-23) mg/dL Creatinine 0.37 L (0.60-1.20) mg/dL Glucose 134 H (70-105) mg/dL Calcium 8.5 L (8.6-10.3) mg/dL - VTE Documentation of Mechanical Device: Intermittent pneumatic compression device Consult Discharge Plan - Plan Referrals: Mary Jo Dawkins CNP [Primary Care Provider] -
[2017-11-03] MEDS ORDERED: Clinimix E 5%-15% SOLUTION 2,000 ML with MVI, adult with vitamin K 10 ML IVC SCH (17:00)
[2017-11-03] MEDS: *HR* Morphine 30 MG/ 30 ML PCA IVC PRN (18:57)
[2017-11-04] MEDS: Ipratropium/Albuterol Neb 3 ML IH SCH ×4 (03:36→21:47)
[2017-11-04 04:15] LABS: Basophils % 0.4 %; Eosinophils # 0.6 K/mcL (0.0-0.6); Eosinophils % 6.3 %; Hematocrit 31.3 % (35.3-44.9); Hemoglobin 10.1 g/dL (11.5-15.4); Immature Granulocytes % 0.5 % (0-4); Lymphocytes # 2.1 K/mcL (0.6-4.6); Lymphocytes % 21.9 %; Mean Corpuscular HGB Conc 32.3 g/dL (31.6-35.5); Mean Corpuscular Hemoglobin 27.8 pg (28.0-33.3); Mean Corpuscular Volume 86.2 fL (83.0-100.0); Mean Platelet Volume 10.6 fL (9.4-12.4); Monocytes # 0.9 K/mcL (0.0-1.3); Monocytes % 9.7 %; Neutrophils # 5.9 K/mcL (1.6-8.9); Platelet Count 214 K/mcL (140-400); Red Blood Count 3.63 M/mcL (3.82-4.97); Red Cell Distribution Width 14.3 % (11.5-14.5); Segmented Neutrophils % 61.2 %
[2017-11-04] MEDS: D5% in 0.45% NACL w KCl 20 MEQ/1,000 ML MLS IVC SCH (04:33)
[2017-11-04 05:07] LABS: BUN/Creatinine Ratio 37 (6-26); Blood Urea Nitrogen 14 mg/dL (8-23); Calcium 8.7 mg/dL (8.6-10.3); Carbon Dioxide 28 mEq/L (23-29); Chloride 102 mEq/L (98-107); Glucose 102 mg/dL (70-105); Magnesium 1.8 mg/dL (1.6-2.6); Osmolality,Calculated 281 (280-300); Phosphorous 4.2 mg/dL (2.7-4.5); Potassium 3.8 mEq/L (3.5-5.1); Sodium 135 mEq/L (136-145); eGFR For African Americans > 60 (> 60); eGFR For Non-African Americans > 60 (> 60)
[2017-11-04] MEDS: *HR* Enoxaparin 40 MG/0.4 ML SYRINGE SQ SCH (05:30)
[2017-11-04] MEDS: Insulin LISPRO 300 UNITS/3 ML VIAL SQ SCH ×3 (06:06→17:08)
[2017-11-04] MEDS: Pantoprazole 40 MG VIAL IVP SCH (07:55)
--- NOTE | 2017-11-04 13:27 | General Surgery Progress Note ---
Date of Encounter: 11/04/17 Time of Encounter: 12:00 - Assessment and Plan (1) Status post partial colectomy Current Visit: Yes Status: Acute POD#5: S/P open sigmoid colectomy with anastomosis, due to acute diverticulitis failing conservative measures. Did have prior admission for another acute flare of diverticulitis in early September 2017 which was uncomplicated; treated with 10 days of Cipro/Flagyl. Pain never fully resolved. Abdominal CT done 10/23/2017 demonstrated sigmoid diverticulitis without perforation/abscess/obstruction. Readmitted to the hospital on 10/24/2017. Conservative measures with bowel rest and Zosyn failed to improve patient's symptoms, prompting above-stated surgery. Patient states feels better than previous days yesterday included. Highly insistent upon advancing diet. Saw patient in presence of Dr. Goff who agrees to advance patient to full diet. Plan: - continue [employer]ER - advance to full diet - ambulate TID to help stimulate bowel - abdominal series demonstrated mild small bowel distention - active bowel sounds - monitor electrolytes QAM - correct lyte imbalances as needed - CBC qAM to monitor WBCs and H/H (2) Acute diverticulitis Current Visit: Yes Status: Acute (3) DVT prophylaxis Current Visit: Yes Status: Acute Lovenox Subjective Narrative: Patient states overall feels better. Pain is been tolerable without difficulty. So she can feel her abdomen gurgling but has not had any flatus or bowel movement. No nausea, vomiting, bloating. Afebrile overnight. Patient insists on advancing diet today. Objective Vital Signs - Last 8 Hours Temp Pulse Resp BP Pulse Ox 11/04/17 10:58 97.9 F 84 16 123/66 95 11/04/17 10:43 16 96 Intake and Output 11/03/17 11/04/17 11/04/17 23:59 07:59 15:59 Intake Total 570 / 570 1240 / 1240 240 / 240 Output Total 400 / 400 600 / 600 500 / 500 Balance 170 / 170 640 / 640 -260 / -260 Intake: IV Fluids 1000 / 1000 KCl 20mEq IN D5%-0.45 NACL 20 1000 / 1000 meq In 1,000 ml @ 50 mls/hr IVC .Q20H [facility] Rx#:[id number] Oral 570 / 570 240 / 240 240 / 240 Output: Urine 400 / 400 600 / 600 500 / 500 Other: Meal Dinner Breakfast # Bowel Movements 0 0 Weight 90.8 kg Blood Glucose* 113 121 123 Patient Weight 11/04/17 23:59 Weight 90.8 kg VITAL SIGNS: Reviewed. See [facility] GENERAL: alert and comfortably supine in bed, answers questions appropriately, NAD HEENT: [Normocephalic, oropharynx moist CV: RRR RESPIRATORY: CTAB ABD: readily audible normoactive bowel sounds, soft, mild post-op tenderness, no distention/rigidity/guarding, no peritoneal signs INCISION: clean, dry, intact without purulence/bleeding/edema/rubor/calor EXTREMITY: grossly normal motor function, no pedal edema, peripheral pulses 2+ b /l NEUROLOGIC EXAM: AOx3, obeys commands, no speech deficits. PSYCHIATRIC: normal mood and affect SKIN: no gross lesions, rashes, or skin changes - Labs 11/04/17 03:51 11/04/17 03:51 Diabetes panel 11/04/17 Range/Units 03:51 Sodium 135 L (136-145) mEq/L Potassium 3.8 (3.5-5.1) mEq/L Chloride 102 (98-107) mEq/L Carbon Dioxide 28 (23-29) mEq/L BUN 14 (8-23) mg/dL Creatinine 0.38 L (0.60-1.20) mg/dL Glucose 102 (70-105) mg/dL Calcium 8.7 (8.6-10.3) mg/dL Calcium panel 11/04/17 Range/Units 03:51 Calcium 8.7 (8.6-10.3) mg/dL Phosphorus 4.2 (2.7-4.5) mg/dL Pituitary panel 11/04/17 Range/Units 03:51 Sodium 135 L (136-145) mEq/L Potassium 3.8 (3.5-5.1) mEq/L Chloride 102 (98-107) mEq/L Carbon Dioxide 28 (23-29) mEq/L BUN 14 (8-23) mg/dL Creatinine 0.38 L (0.60-1.20) mg/dL Glucose 102 (70-105) mg/dL Calcium 8.7 (8.6-10.3) mg/dL Adrenal panel 11/04/17 Range/Units 03:51 Sodium 135 L (136-145) mEq/L Potassium 3.8 (3.5-5.1) mEq/L Chloride 102 (98-107) mEq/L Carbon Dioxide 28 (23-29) mEq/L BUN 14 (8-23) mg/dL Creatinine 0.38 L (0.60-1.20) mg/dL Glucose 102 (70-105) mg/dL Calcium 8.7 (8.6-10.3) mg/dL - VTE Documentation of Mechanical Device: Intermittent pneumatic compression device Consult Discharge Plan - Plan Referrals: Mary Jo Dawkins, [employer]PERATOR [Primary Care Provider] -
[2017-11-04] MEDS ORDERED: Clinimix E 5%-15% SOLUTION 2,000 ML with MVI, adult with vitamin K 10 ML IVC SCH (17:00)
[2017-11-04] MEDS: *HR* Morphine 30 MG/ 30 ML PCA IVC PRN (17:37)
[2017-11-05] MEDS: Insulin LISPRO 300 UNITS/3 ML VIAL SQ SCH ×4 (00:23→18:50)
[2017-11-05] MEDS: D5% in 0.45% NACL w KCl 20 MEQ/1,000 ML MLS IVC SCH ×2 (02:37→22:54)
[2017-11-05 04:07] LABS: Basophils % 0.3 %; Eosinophils # 0.6 K/mcL (0.0-0.6); Eosinophils % 6.4 %; Hematocrit 30.9 % (35.3-44.9); Hemoglobin 10.2 g/dL (11.5-15.4); Immature Granulocytes % 0.5 % (0-4); Lymphocytes # 2.1 K/mcL (0.6-4.6); Lymphocytes % 22.7 %; Mean Corpuscular Hemoglobin 28.5 pg (28.0-33.3); Mean Corpuscular Volume 86.3 fL (83.0-100.0); Mean Platelet Volume 10.9 fL (9.4-12.4); Monocytes # 1.1 K/mcL (0.0-1.3); Monocytes % 11.7 %; Neutrophils # 5.4 K/mcL (1.6-8.9); Platelet Count 246 K/mcL (140-400); Red Blood Count 3.58 M/mcL (3.82-4.97); Red Cell Distribution Width 14.2 % (11.5-14.5); Segmented Neutrophils % 58.4 %
[2017-11-05] MEDS: Ipratropium/Albuterol Neb 3 ML IH SCH ×4 (04:14→23:06)
[2017-11-05 04:27] LABS: BUN/Creatinine Ratio 39 (6-26); Blood Urea Nitrogen 16 mg/dL (8-23); Calcium 8.8 mg/dL (8.6-10.3); Carbon Dioxide 28 mEq/L (23-29); Chloride 103 mEq/L (98-107); Glucose 100 mg/dL (70-105); Osmolality,Calculated 285 (280-300); Phosphorous 4.3 mg/dL (2.7-4.5); Potassium 4.1 mEq/L (3.5-5.1); Sodium 137 mEq/L (136-145); Triglycerides 90 mg/dL (< 150); eGFR For African Americans > 60 (> 60); eGFR For Non-African Americans > 60 (> 60)
[2017-11-05] MEDS: *HR* Enoxaparin 40 MG/0.4 ML SYRINGE SQ SCH (05:40)
--- NOTE | 2017-11-05 06:33 | General Surgery Progress Note ---
<Nadeem Miller - Last Filed: 11/05/17 11:37> Date of Encounter: 11/05/17 Time of Encounter: 06:20 - Assessment and Plan (1) Status post partial colectomy Status: Acute Status post Sigmoid colectomy with primary handsewn anastomosis. POD#6. WBC 9.3. Afebrile overnight. Pain is well controlled on oxycodone. No bowel movements yet. Patient denies passing gas yet. - Milk of magnesia. 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 - ambulate TID to help stimulate bowel - abdominal series demonstrated mild small bowel distention - active bowel sounds - monitor electrolytes QAM - correct lyte imbalances as needed - CBC qAM to monitor WBCs and H/H - await bowel function to return. (2) Acute diverticulitis Status: Acute See plan above. (3) DVT prophylaxis Status: Acute - Continue Lovenox 40 mg SQ. Subjective Narrative: Patient was started on a full diet yesterday and says that she has been able to tolerate it well. She says her abdominal discomfort has been the same since yesterday. She has been able to ambulate. She denies having a bowel movement or passing gas yet. Denies chest pain. Admits to some shortness of breath. Denies any nausea or vomiting. Objective VITAL SIGNS: Reviewed. See [facility] GENERAL: no apprent distress HEENT: [Normocephalic, PER, EOMi, oropharynx pink/moist, no JVD noted.] CV: b/l rad pulses 2+, RRR, no murmurs or gallops, no JVD RESPIRATORY: CTAB without wheezes, rales, or rhonchi ABD: soft, minor diffuse tenderness to deep palpation , no rebound/guarding/ rigidity, no peritoneal signs. Normal bowel sounds present. INCISION: abdominal incision clean, dry, intact without purulence/bleeding/edema /rubor/calor EXTREMITY: grossly normal motor function, no pedal edema, peripheral pulses 2+ b /l NEUROLOGIC EXAM: AOx3, obeys commands, no speech deficits. PSYCHIATRIC: normal mood and affect SKIN: no gross lesions, rashes, or skin changes Vital Signs - Last 8 Hours Temp Pulse Resp BP Pulse Ox 11/05/17 03:29 98.1 F 78 15 137/83 97 Intake and Output 05/13/18 05/13/18 05/14/18 15:59 23:59 07:59 Intake Total 240 / 240 310 / 310 1100 / 1100 Output Total 500 / 500 1400 / 1400 300 / 300 Balance -260 / -260 -1090 / -1090 800 / 800 Intake: IV Fluids 250 / 250 1000 / 1000 KCl 20mEq IN D5%-0.45 NACL 20 1000 / 1000 meq In 1,000 ml @ 50 mls/hr IVC .Q20H MARÍA Rx#:[id number] Intralipid 20% 250 ML @ 21 mls/ 250 / 250 hr IVPB DAILY@1700 [facility] Rx#: [id number] Oral 240 / 240 60 / 60 100 / 100 Output: Urine 500 / 500 1400 / 1400 300 / 300 Other: Meal Breakfast Dinner Percent of Meal Consumed 25% # Bowel Movements 0 Weight 91.4 kg Blood Glucose* 123 109 Patient Weight 11/05/17 23:59 Weight 91.4 kg - Labs 11/05/17 03:40 11/05/17 03:40 Diabetes panel 11/05/17 Range/Units 03:40 Sodium 137 (136-145) mEq/L Potassium 4.1 (3.5-5.1) mEq/L Chloride 103 (98-107) mEq/L Carbon Dioxide 28 (23-29) mEq/L BUN 16 (8-23) mg/dL Creatinine 0.41 L (0.60-1.20) mg/dL Glucose 100 (70-105) mg/dL Calcium 8.8 (8.6-10.3) mg/dL Triglycerides 90 (< 150) mg/dL Calcium panel 11/05/17 Range/Units 03:40 Calcium 8.8 (8.6-10.3) mg/dL Phosphorus 4.3 (2.7-4.5) mg/dL Pituitary panel 11/05/17 Range/Units 03:40 Sodium 137 (136-145) mEq/L Potassium 4.1 (3.5-5.1) mEq/L Chloride 103 (98-107) mEq/L Carbon Dioxide 28 (23-29) mEq/L BUN 16 (8-23) mg/dL Creatinine 0.41 L (0.60-1.20) mg/dL Glucose 100 (70-105) mg/dL Calcium 8.8 (8.6-10.3) mg/dL Adrenal panel 11/05/17 Range/Units 03:40 Sodium 137 (136-145) mEq/L Potassium 4.1 (3.5-5.1) mEq/L Chloride 103 (98-107) mEq/L Carbon Dioxide 28 (23-29) mEq/L BUN 16 (8-23) mg/dL Creatinine 0.41 L (0.60-1.20) mg/dL Glucose 100 (70-105) mg/dL Calcium 8.8 (8.6-10.3) mg/dL - VTE Documentation of Mechanical Device: Intermittent pneumatic compression device Consult Discharge Plan - Plan Instructions: Diverticulitis Diet (DC) Additional Instructions: In the beginning, you may need to avoid whole-grain foods, fruits, and vegetables. This will help your colon rest. After you are better, your provider will suggest that you add more fiber to your diet and avoid certain foods. Eating more fiber may help prevent future attacks. If you have bloating or gas, cut down the amount of fiber you eat for a few days. Return to the emergency department if: You have bowel movement or foul-smelling discharge leaking from your vagina or in your urine. You have severe diarrhea. You urinate less than usual or not at all. You are not able to have a bowel movement. You cannot stop vomiting. You have severe abdominal pain, a fever, and your abdomen is larger than usual. You have new or increased blood in your bowel movements. Contact your healthcare provider if: You have pain when you urinate. Your symptoms get worse or do not go away. You have questions or concerns about your condition or care. Referrals: Collin Alexander MD [Partnered Physician] - 11/20/17 8:55 am Prescriptions: Ibuprofen [Motrin] 800 mg PO Q8HR #42 tablet Docusate [Colace] 100 mg PO BID #30 capsule Ondansetron ODT [Zofran ODT] 4 mg PO Q6H PRN #15 tab.rapdis PRN Reason: Nausea Oxycodone HCl/Acetaminophen [Percocet 5-325 mg Tablet] 1 each PO Q6H PRN 7 Days #28 tablet PRN Reason: Pain <Collin Alexander - Last Filed: 11/08/17 08:43> Date of Encounter: 11/05/17 Objective - Labs 11/06/17 04:05 11/06/17 04:05 - Attending Attestation I examined this patient and my medical decision-making was reviewed with the Resident Physician. I agree with the documented findings, disposition and treatment plan as described except to the extent set forth below. The patient is seen and evaluated on morning rounds with resident. We will await bowel function prior to discharge. Collin Alexander MD FACS
[2017-11-05] MEDS ORDERED: MOM Conc 10 ML UD.LIQ PO ONE (08:39)
[2017-11-05] MEDS: Pantoprazole 40 MG VIAL IVP SCH (09:25)
[2017-11-05] MEDS: *HR* Morphine 30 MG/ 30 ML PCA IVC PRN (15:03)
[2017-11-06] MEDS: Insulin LISPRO 300 UNITS/3 ML VIAL SQ SCH ×2 (03:37→07:41)
[2017-11-06] MEDS: Ipratropium/Albuterol Neb 3 ML IH SCH ×2 (04:09→10:39)
[2017-11-06 04:18] LABS: Basophils % 0.3 %; Eosinophils # 0.5 K/mcL (0.0-0.6); Eosinophils % 4.9 %; Hematocrit 29.6 % (35.3-44.9); Hemoglobin 9.7 g/dL (11.5-15.4); Immature Granulocytes % 0.7 % (0-4); Lymphocytes # 2.2 K/mcL (0.6-4.6); Lymphocytes % 23.6 %; Mean Corpuscular HGB Conc 32.8 g/dL (31.6-35.5); Mean Corpuscular Hemoglobin 28.2 pg (28.0-33.3); Mean Platelet Volume 11.1 fL (9.4-12.4); Monocytes # 0.9 K/mcL (0.0-1.3); Monocytes % 9.9 %; Neutrophils # 5.6 K/mcL (1.6-8.9); Platelet Count 251 K/mcL (140-400); Red Blood Count 3.44 M/mcL (3.82-4.97); Red Cell Distribution Width 14.3 % (11.5-14.5); Segmented Neutrophils % 60.6 %
[2017-11-06 04:34] LABS: BUN/Creatinine Ratio 39 (6-26); Blood Urea Nitrogen 17 mg/dL (8-23); Calcium 8.9 mg/dL (8.6-10.3); Carbon Dioxide 28 mEq/L (23-29); Chloride 102 mEq/L (98-107); Glucose 108 mg/dL (70-105); Osmolality,Calculated 286 (280-300); Phosphorous 4.6 mg/dL (2.7-4.5); Potassium 4.2 mEq/L (3.5-5.1); Sodium 137 mEq/L (136-145); eGFR For African Americans > 60 (> 60); eGFR For Non-African Americans > 60 (> 60)
[2017-11-06] MEDS: *HR* Enoxaparin 40 MG/0.4 ML SYRINGE SQ SCH (05:55)
--- NOTE | 2017-11-06 07:05 | Discharge Summary ---
<TishasyedaarjunNadeem hayes - Last Filed: 11/06/17 09:08> Orders not resulted at time of discharge: Pending orders 10/28/17 09:08 Culture,Sputum with Gram Stain [] Routine Date of Encounter: 11/06/17 Time of Encounter: 06:30 - Discharge Diagnosis (1) Status post partial colectomy Priority: Primary Status: Acute (2) Acute diverticulitis Priority: Primary Status: Acute (3) DVT prophylaxis Priority: Primary Status: Acute General Surgery Exam VITAL SIGNS: Reviewed. See [facility] GENERAL: no apparent distress HEENT: [Normocephalic, PER, EOMi, oropharynx pink/moist, no JVD noted.] CV: b/l rad pulses 2+, RRR, no murmurs or gallops, no JVD RESPIRATORY: CTAB without wheezes, rales, or rhonchi ABD: soft, minimal diffuse tenderness, no rebound/guarding/rigidity, no peritoneal signs. Normal bowel sounds present. INCISION: abdominal incision clean, dry, intact without purulence/bleeding/edema /rubor/calor EXTREMITY: grossly normal motor function, no pedal edema, peripheral pulses 2+ b /l NEUROLOGIC EXAM: AOx3, obeys commands, no speech deficits. PSYCHIATRIC: normal mood and affect SKIN: no gross lesions, rashes, or skin changes Initial Vital Signs Temp Pulse Resp BP Pulse Ox 97.9 F 75 16 115/75 95 10/23/17 17:41 10/23/17 17:41 10/23/17 17:41 10/23/17 17:41 10/23/17 17:41 - Hospital Course Hospital course: 72 year old female who presented for worsening LLQ pain. She was recently admitted on 09/25 for acute diverticulitis, discharged on 10/05 with 10 days of cipro/flagyl. 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 She took them to completion finishing them middle of last week. Her last colonoscopy was 12 years ago which was benign. She was scheduled for outpatient follow-up 10/26 for planning for colonoscopy after [address] abd/pelvis was performed in the ED showed prox/mid sigmoid diverticulitis without perforation or colonic abscess. Patient was started zosyn and put on NPO and TPN nutrition. Repeat abdominal exam showed persistent findings compatible with sigmoid diverticulitis with no evidence for obstruction, perforation or intraperitoneal abscess formation. Patient had a sigmoid colectomy with primary handsewn anastomosis. She continued to be on zosyn as we waited for bowel function to return. She was started on 300 mL of volume restricted clear liquids per 8 hours. Zosyn was discontinued on POD#3. IV maintenance fluids were decreased from 100-50 mL per hour. Patient was having good urine output. She had her Alvarez catheter removed. Patient was then advanced from clear liquid to regular diet, for which she was able to tolerate. She continued to have good bowel sounds, but not BM. Yesterday she was given milk of magnesia and was able to have a bowel movement last night. She denies any melena or hematochezia. When see today (POD#7), patient says that her abdominal pain has improved from yesterday and is minimal. She denies any fever, chills, nausea, vomiting, chest pain, or shortness of breath. Patient will be dicharged today. Patient has follow-up appointment with general surgeon Dr. Alexander on 11/20/17. Patient will also need to follow-up with PCP in 1 week. Patient was warned that if she develops severe diarrhea, constipation, vomiting, severe abdominal pain, new or increased blood in stool to report to the ER immediately. - Time Spent with Patient Total time spent providing and/or coordinating discharge services: Less than 30 minutes - Discharge Medications Prescriptions: Ibuprofen [Motrin] 800 mg PO Q8HR #42 tablet Docusate [Colace] 100 mg PO BID #30 capsule Ondansetron ODT [Zofran ODT] 4 mg PO Q6H PRN #15 tab.rapdis PRN Reason: Nausea Oxycodone HCl/Acetaminophen [Percocet 5-325 mg Tablet] 1 each PO Q6H PRN 7 Days #28 tablet PRN Reason: Pain Home Medications: Aspirin [Adult Aspirin Regimen] 81 mg PO DAILY 09/29/17 [History] Sertraline [Zoloft] 100 mg PO DAILY 09/29/17 [History] Docusate [Colace] 100 mg PO BID #30 capsule 11/06/17 [Rx] Ibuprofen [Motrin] 800 mg PO Q8HR #42 tablet 11/06/17 [Rx] Ondansetron ODT [Zofran ODT] 4 mg PO Q6H PRN #15 tab.rapdis 11/06/17 [Rx] Oxycodone HCl/Acetaminophen [Percocet 5-325 mg Tablet] 1 each PO Q6H PRN 7 Days #28 tablet 11/06/17 [Rx] Allergies/Adverse Reactions: 3 Allergy/AdvReac Type Severity Reaction Status Date / Time No Known Allergies Allergy Verified 10/24/17 09:55 Date of admission: 10/23/17 17:53 Primary care physician: Mary Jo Dawkins CNP Consults: 10/29/17 10:33 consult to skill training program coordinator [Consult to Nutrition] [CONS] Routine Comment: Total fluid rate Consulting Provider: NUTRITION Reason for Dietary Consult: TPN Start and Manage 10/29/17 10:35 Consult to Invasive Line Access Team [CONS] Routine Reason for Consult: Picc Line Insertion Line Type: PICC PICC line indications: Parental nutrition Time Notified: 10:36 Call Completed: Yes Discharging clinician: Nadeem Miller Anticipated date of discharge: 11/06/17 Labs on day of discharge: Labs from last 24 hours 11/06/17 11/06/17 11/06/17 04:05 04:05 00:52 WBC 9.2 RBC 3.44 L Hgb 9.7 L Hct 29.6 L MCV 86.0 MCH 28.2 MCHC 32.8 RDW 14.3 Plt Count 251 MPV 11.1 Immature Gran % 0.7 Seg Neutrophils % 60.6 Lymphocytes % 23.6 Monocytes % 9.9 Eosinophils % 4.9 Basophils % 0.3 Neutrophils # 5.6 Lymphocytes # 2.2 Monocytes # 0.9 Eosinophils # 0.5 Basophils # 0.0 Sodium 137 Potassium 4.2 Chloride 102 Carbon Dioxide 28 BUN 17 Creatinine 0.44 L Est GFR ( Amer) > 60 Est GFR (Non-Af Amer) > 60 BUN/Creatinine Ratio 39 H Glucose 108 H POC Glucose 119 H Calculated Osmolality 286 Calcium 8.9 Phosphorus 4.6 H Magnesium 2.0 11/05/17 17:57 WBC RBC Hgb Hct MCV MCH MCHC RDW Plt Count MPV Immature Gran % Seg Neutrophils % Lymphocytes % Monocytes % Eosinophils % Basophils % Neutrophils # Lymphocytes # Monocytes # Eosinophils # Basophils # Sodium Potassium Chloride Carbon Dioxide BUN Creatinine Est GFR ( Amer) Est GFR (Non-Af Amer) BUN/Creatinine Ratio Glucose POC Glucose 106 H Calculated Osmolality Calcium Phosphorus Magnesium - Impressions ITS Impressions Abdomen/Pelvis CT 10/29/17 08:00 IMPRESSION: Persistent findings compatible with sigmoid diverticulitis. No evidence for obstruction, perforation or intraperitoneal abscess formation. Persistent small focal fluid collection within the superior wall of the sigmoid colon in the region of inflammation, similar to prior noncontrast exam 10/23/2017 but decreased in size from prior exam 10/02/2017. This could reflect the inflamed diverticulum or could reflect a small intramural collection such as intramural abscess relating to the diverticulitis. Trace ascites, worsened from more recent exam. Cholelithiasis. D/ / 10/29/2017 10:30:03 Deandre Paula MD / Eunice Batista Interpreting Provider: Deandre Paula MD Chest/Abdomen X-ray 11/04/17 06:00 IMPRESSION: 1. No acute cardiopulmonary disease. 2. The bowel gas pattern is most consistent with either a postoperative ileus or developing small bowel obstruction. There is no evidence of free air. D/ / 11/04/2017 10:11:44 Papa Welch MD / hal Interpreting Provider: Papa Welch MD - Patient Status Disposition: Home, Self-Care Functional capacity at discharge: independent ambulation Overall status at discharge: patient is progressing back to baseline - Discharge Instructions Instructions: Diverticulitis Diet (DC) Follow Up With: Collin Alexander MD [Partnered Physician] - 11/20/17 8:55 am Additional Instructions: In the beginning, you may need to avoid whole-grain foods, fruits, and vegetables. This will help your colon rest. After you are better, your provider will suggest that you add more fiber to your diet and avoid certain foods. Eating more fiber may help prevent future attacks. If you have bloating or gas, cut down the amount of fiber you eat for a few days. Return to the emergency department if: You have bowel movement or foul-smelling discharge leaking from your vagina or in your urine. You have severe diarrhea. You urinate less than usual or not at all. You are not able to have a bowel movement. You cannot stop vomiting. You have severe abdominal pain, a fever, and your abdomen is larger than usual. You have new or increased blood in your bowel movements. Contact your healthcare provider if: You have pain when you urinate. Your symptoms get worse or do not go away. You have questions or concerns about your condition or care. - Diet and Activity Activity: resume usual activities as tolerated Diet: other (Low fiber diet) <Collin Alexander T - Last Filed: 11/08/17 08:51> Date of Encounter: 11/06/17 General Surgery Exam Initial Vital Signs Temp Pulse Resp BP Pulse Ox 97.9 F 75 16 115/75 95 10/23/17 17:41 10/23/17 17:41 10/23/17 17:41 10/23/17 17:41 10/23/17 17:41 - Hospital Course Hospital course: Ms. Pradhan is a 72 year old female - Time Spent with Patient Total time spent providing and/or coordinating discharge services: Date of admission: 10/23/17 17:53 Primary care physician: Mary Jo Dawkins CNP Consults: 10/29/17 10:33 consult to skill training program coordinator [Consult to Nutrition] [CONS] Routine Comment: Total fluid rate Consulting Provider: NUTRITION Reason for Dietary Consult: TPN Start and Manage 10/29/17 10:35 Consult to Invasive Line Access Team [CONS] Routine Reason for Consult: Picc Line Insertion Line Type: PICC PICC line indications: Parental nutrition Time Notified: 10:36 Call Completed: Yes - Impressions ITS Impressions Abdomen/Pelvis CT 10/29/17 08:00 IMPRESSION: Persistent findings compatible with sigmoid diverticulitis. No evidence for obstruction, perforation or intraperitoneal abscess formation. Persistent small focal fluid collection within the superior wall of the sigmoid colon in the region of inflammation, similar to prior noncontrast exam 10/23/2017 but decreased in size from prior exam 10/02/2017. This could reflect the inflamed diverticulum or could reflect a small intramural collection such as intramural abscess relating to the diverticulitis. Trace ascites, worsened from more recent exam. Cholelithiasis. D/ / 10/29/2017 10:30:03 Deandre Paula MD / Eunice Batista Interpreting Provider: Deandre Paula MD Chest/Abdomen X-ray 11/04/17 06:00 IMPRESSION: 1. No acute cardiopulmonary disease. 2. The bowel gas pattern is most consistent with either a postoperative ileus or developing small bowel obstruction. There is no evidence of free air. D/ / 11/04/2017 10:11:44 Papa Welch MD / hal Interpreting Provider: Papa Welch MD - Attending Attestation I examined this patient and my medical decision-making was reviewed with the Resident Physician. I agree with the documented findings, disposition and treatment plan as described except to the extent set forth below. The patient is seen and evaluated on morning rounds. She has recovered her bowel function with bowel movement and flatus. She is ready for discharge. Collin Alexander MD FACS
[2017-11-06 07:56] VITALS: BP 114/66
[2017-11-06] MEDS: Pantoprazole 40 MG VIAL IVP SCH (09:18)
== END 2017-11-06 11:48 | disposition home or self-care (01) | DRG 331 ==
LOC: 3ANU
PROVIDERS: ADMIT Surgery; ATTEND Surgery